=== PATIENT | female | born 1970 | race Caucasian/White ===

== ENCOUNTER 2017-02-09 15:51 | Observation (INO) ==
[2017-02-09 16:05] LABS: Bilirubin,Urine Negative (Negative); Blood,Urine Moderate (Negative); Clarity,Urine Clear (Clear); Color,Urine Yellow (Yellow); Glucose,Urine (UA) Normal (Normal); Ketones,Urine Negative (Negative); Leukocyte Esterase,Urine Negative (Negative); Nitrite,Urine Negative (Negative); PH,Urine 6.5 pH Units (5.0-8.0); Protein,Urine Negative (Neg-Trace); Urobilinogen,Urine Normal (Normal)
[2017-02-09 16:07] LABS: Bacteria,Urine Few per hpf (None-Few); Hyaline Casts,Urine None Seen per lpf (None-Few); RBC,Urine 0-3 per hpf (0-3); Squamous Epithelial Cell,Urine Many per lpf (None-Few)
[2017-02-09] MEDS ORDERED: Sucralfate 1 GM TABLET PO ONE (16:13)
[2017-02-09] MEDS ORDERED: *HR* FentaNYL (PF) 100 MCG/2 ML VIAL IVP ONE ×2 (16:14→16:54)
[2017-02-09] MEDS ORDERED: Ondansetron 4 MG/2 ML VIAL IVP ONE (16:14)
--- NOTE | 2017-02-09 16:14 | Emergency Department Note ---
Disposition Clinical Impression: Regional enteritis of jejunum Qualifiers: Digestive disease complication type: without complication Qualified Code(s): K50.00 - Crohn's disease of small intestine without complications Abdominal pain Qualifiers: Abdominal location: upper abdomen, unspecified Qualified Code(s): R10.10 - Upper abdominal pain, unspecified Disposition: Admitted As Inpatient Condition: Fair Referrals: Emre Jin, [Primary Care Provider] - Forms: ED Satisfaction Letter, Work/School Release Time of Disposition: 18:34 Abdominal Pain HPI - General Chief Complaint: ED Abdominal Pain Stated Complaint: Abdominal pain Time Seen by Provider: 02/09/17 15:53 Source: patient Nursing Notes Reviewed: Yes Vital Signs Reviewed: Yes - History of Present Illness HPI Narrative: 46-year-old female complains of abdominal pain that started 5 hours ago. Patient states she has been having these pain symptoms with past 3 months and usually is only 3/10. Patient's been under treatment by Dr. sofia nix of the [facility] and his been prescribed omeprazole for GERD. Patient states she takes chief incident daily and to have some effect but does not take the pain away completely. Patient states the pain started out at 8/10 today sharp across her upper abdomen including right upper epigastric and left upper quadrant with no radiation to her back or elsewhere. Patient states she does not have any urinary symptoms. Patient did have a bout of vomiting 2 hours after the onset of the pain with nausea. Patient states she has not had any imaging workup for her symptoms. The patient states she quit smoking one month ago. Pain Scale: 8 - Related Data Home Medications Medication Instructions Recorded Confirmed ClonazePAM 02/15/15 FLUoxetine HCl 02/15/15 Gabapentin 02/15/15 Ibuprofen 02/15/15 Vitamin D 02/15/15 02/15/15 Previous Rx's Medication Instructions Recorded Azithromycin [Azithromycin 6-Tab 250 mg PO DAILY #6 tab 02/15/15 Pack] Hydrocodone/Acetaminophen [[place] 1 each PO Q4H PRN #10 tablet 02/15/15 5-325 Tablet] L. Acidophilus/Pectin, [place] 1 each PO DAILY #6 capsule 02/15/15 [Acidophilus Probiotic Capsule] Promethazine/Dextromethorphan 5 ml PO Q4H PRN #120 ml 02/15/15 [Promethazine-Dm Syrup] Allergies Allergy/AdvReac Type Severity Reaction Status Date / Time methylprednisolone AdvReac Diarrhea Verified 11/25/14 10:01 [From Medrol] All systems ED: reviewed and negative except as stated. Review of Systems: As Per HPI Constitutional: Denies: fever, weakness Eyes: Denies: vision change ENT ED: Denies: throat pain Cardiovascular: Denies: chest pain Respiratory: Denies: cough, dyspnea Gastrointestinal: Reports: abdominal pain, nausea, vomiting, diarrhea Genitourinary: Denies: urgency, dysuria, frequency, hematuria Musculoskeletal: Denies: back pain, neck pain Abdominal Pain PMH - Past Medical History Medical history: Reports: fibromyalgia Female Surgical History: Reports: Psychiatric history: Reports: anxiety - Social History Smoking status: Former smoker Alcohol use: Reports: none Drug use: Reports: none Physical Exam Vital Signs Temperature 98.3 F 02/09/17 15:52 Pulse Rate 94 02/09/17 15:52 Respiratory Rate 20 02/09/17 15:52 Blood Pressure 174/99 02/09/17 15:52 O2 Sat by Pulse Oximetry 98 02/09/17 15:52 Temperature 98.3 F 02/09/17 15:52 Pulse Rate 94 02/09/17 15:52 Respiratory Rate 20 02/09/17 15:52 Blood Pressure 174/99 02/09/17 15:52 O2 Sat by Pulse Oximetry 98 02/09/17 15:52 Oxygen Delivery Oxygen Delivery Room Air 46-year-old female who is alert and oriented 3. Patient appears to be in some distress secondary to her abdominal discomfort. Patient is nontoxic appearing. Patient has normal vital signs exception of blood pressure which is 174/99. Patient's currently afebrile. - General Limitations: no limitations General appearance: alert, anxious - Head Head exam: atraumatic, normocephalic, normal inspection - Eye Eye exam: Present: normal appearance, PERRL, EOMI - ENT ENT exam: normal exam, normal oropharynx, mucous membranes moist - Neck Neck exam: Present: normal inspection, full ROM, trachea midline - Chest Chest inspection: Present: normal inspection, symmetric chest wall rise. Absent : tenderness - Respiratory Respiratory exam: Present: normal lung sounds bilaterally. Absent: respiratory distress, wheezes - Cardiovascular Cardiovascular exam: Present: regular rate, normal rhythm, normal heart sounds - Abdominal Exam Abdominal exam: Present: soft, Non-Tender. Absent: tenderness, distention, guarding, rebound, rigidity - Extremities Exam Extremities exam: Present: normal inspection, full ROM, normal capillary refill. Absent: tenderness, pedal edema - Back Exam Back exam: Present: normal inspection, full ROM. Absent: tenderness, CVA tenderness (R), CVA tenderness (L) - Neurological Exam Neurological exam: Present: alert, oriented X3 - Skin Skin exam: Present: warm, dry, intact, normal color Course Vital Signs Temperature 98.3 F 02/09/17 15:52 Pulse Rate 94 02/09/17 15:52 Respiratory Rate 20 02/09/17 15:52 Blood Pressure 174/99 02/09/17 15:52 O2 Sat by Pulse Oximetry 98 02/09/17 15:52 Temperature 98.3 F 02/09/17 15:52 Pulse Rate 87 02/09/17 17:23 Respiratory Rate 18 02/09/17 17:23 Blood Pressure 136/87 02/09/17 17:23 O2 Sat by Pulse Oximetry 97 02/09/17 17:23 Oxygen Delivery Oxygen Delivery Room Air Abdominal Pain - MDM Narrative Medical decision making narrative: Abdominal pain concerning for gastritis given patient's complaints of worsening pain when she eats and undergoing current treatment for GERD-like symptoms. Patient was given a dose of fentanyl, Carafate by mouth and Zofran IV. Patient has reduction in her symptoms from 8 down to 3/10. On abdominal exam with ultrasound across her epigastric region patient gallbladder showed no her cholecystic fluid, no thickening gallbladder wall, and no stones. But adjacent to the gallbladder showed a segment of intestine which had a anechoic layer to suggest some possible inflammation. Patient will be sent for CT abdomen and pelvis to rule out any intestinal causes of colitis, ischemic bowel or other intra-abdominal pathology. Patient's labs show WBC at 13.1 with a left shift. Lactic acid is negative. Patient's liver transaminases are not elevated. CT abdomen and pelvis results show: IMPRESSION: Marked mucosal thickening of proximal jejunal small bowel all with mild dilation of slightly more distal jejunal small bowel loops is nonspecific, may reflect infectious/inflammatory enteritis, but other etiologies are not excluded. No abrupt transition point to suggest bowel obstruction. Clinical correlation is recommended. Could consider CTE/MRE and/or endoscopy for further evaluation, as indicated. This is a jejunal enteritis. She has worsening pain symptoms whenever she takes anything by mouth. Patient requires bowel rest and antibiotics. She most likely will be not be able to tolerate oral antibiotics and so patient will be admitted for antibiotic treatment at bowel rest and pain control. Patient understands and agrees to treatment and plan Dr. Hopkins hospitalist as accepted patient for admission at 1832 hrs. - Lab Data Lab results reviewed: Yes I reviewed the patient's lab results. Lab results narrative: Short CBC 02/09/17 Range/Units 16:54 WBC 13.1 H (4.3-11.1) K/mcL Hgb 13.4 (11.5-15.4) g/dL Hct 40.7 (35.3-44.9) % Plt Count 288 (140-400) K/mcL Neutrophils # 11.0 H (1.6-8.9) K/mcL BMP 02/09/17 Range/Units 16:54 Sodium 139 (136-145) mEq/L Potassium 4.3 (3.5-4.5) mEq/L Chloride 110 H (98-109) mEq/L Carbon Dioxide 21 (19-29) mEq/L BUN 13 (7-20) mg/dL Creatinine 0.64 (0.57-1.11) mg/dL Glucose 99 (70-99) mg/dL Calcium 8.5 L (8.6-10.8) mg/dL Liver Function 02/09/17 Range/Units 16:54 Total Bilirubin 0.3 (0.2-1.2) mg/dL Direct Bilirubin 0.1 (0.0-0.5) mg/dL AST 17 (5-34) Units/L ALT 17 (0-55) Units/L Alkaline Phosphatase 113 (38-126) Units/L Albumin 3.1 L (3.5-5.0) g/dL Urine 02/09/17 Range/Units 15:54 Urine Color Yellow (Yellow) Urine Clarity Clear (Clear) Urine pH 6.5 (5.0-8.0) pH Units Ur Specific [place] 1.020 (1.010-1.025) Urine Protein Negative (Neg-Trace) mg/dL Urine Glucose (UA) Normal (Normal) mg/dL Result diagrams: 02/09/17 16:54 02/09/17 16:54 Lab Results 02/09/17 02/09/17 02/09/17 Range/Units 15:54 15:54 16:54 WBC 13.1 H (4.3-11.1) K/mcL RBC 4.62 (3.82-4.97) M/mcL Hgb 13.4 (11.5-15.4) g/dL Hct 40.7 (35.3-44.9) % MCV 88.1 (83.0-100.0) fL MCH 29.0 (28.0-33.3) pg MCHC 32.9 (31.6-35.5) g/dL RDW 13.1 (11.5-14.5) % Plt Count 288 (140-400) K/mcL MPV 9.0 L (9.4-12.4) fL Immature Gran % 0.4 (0-4) % Seg Neutrophils % 83.7 % Lymphocytes % 7.6 % Monocytes % 5.7 % Eosinophils % 2.1 % Basophils % 0.5 % Neutrophils # 11.0 H (1.6-8.9) K/mcL Lymphocytes # 1.0 (0.6-4.6) K/mcL Monocytes # 0.7 (0.0-1.3) K/mcL Eosinophils # 0.3 (0.0-0.6) K/mcL Basophils # 0.1 (0.0-0.2) K/mcL Sodium (136-145) mEq/L Potassium (3.5-4.5) mEq/L Chloride (98-109) mEq/L Carbon Dioxide (19-29) mEq/L BUN (7-20) mg/dL Creatinine (0.57-1.11) mg/dL Est GFR ( Amer) (> 60) Est GFR (Non-Af Amer) (> 60) BUN/Creatinine Ratio (6-26) Glucose (70-99) mg/dL Calculated Osmolality (280-300) Lactic Acid (0.5-2.2) mmol/L Calcium (8.6-10.8) mg/dL Total Bilirubin (0.2-1.2) mg/dL Direct Bilirubin (0.0-0.5) mg/dL Indirect Bilirubin (0.0-1.2) mg/dL AST (5-34) Units/L ALT (0-55) Units/L Alkaline Phosphatase (38-126) Units/L Serum Total Protein (6.0-8.3) g/dL Albumin (3.5-5.0) g/dL Globulin (2.4-3.5) g/dL Albumin/Globulin Ratio (1.1-2.2) Lipase (8-78) Units/L Urine Color Yellow (Yellow) Urine Clarity Clear (Clear) Urine pH 6.5 (5.0-8.0) pH Units Ur Specific [place] 1.020 (1.010-1.025) Urine Protein Negative (Neg-Trace) mg/dL Urine Glucose (UA) Normal (Normal) mg/dL Urine Ketones Negative (Negative) mg/dL Urine Blood Moderate H (Negative) Urine Nitrite Negative (Negative) Urine Bilirubin Negative (Negative) Urine Urobilinogen Normal (Normal) mg/dL Ur Leukocyte Esterase Negative (Negative) Urine Microscopic RBC 0-3 (0-3) per hpf Urine Microscopic WBC 3-5 H (0-3) per hpf Ur Squamous Epith Cells Many H (None-Few) per lpf Urine Bacteria Few (None-Few) per hpf Hyaline Casts None Seen (None-Few) per lpf Ur Culture Indicated? NO (NO) Urine Test Negative (Negative) 02/09/17 02/09/17 Range/Units 16:54 16:54 WBC (4.3-11.1) K/mcL RBC (3.82-4.97) M/mcL Hgb (11.5-15.4) g/dL Hct (35.3-44.9) % MCV (83.0-100.0) fL MCH (28.0-33.3) pg MCHC (31.6-35.5) g/dL RDW (11.5-14.5) % Plt Count (140-400) K/mcL MPV (9.4-12.4) fL Immature Gran % (0-4) % Seg Neutrophils % % Lymphocytes % % Monocytes % % Eosinophils % % Basophils % % Neutrophils # (1.6-8.9) K/mcL Lymphocytes # (0.6-4.6) K/mcL Monocytes # (0.0-1.3) K/mcL Eosinophils # (0.0-0.6) K/mcL Basophils # (0.0-0.2) K/mcL Sodium 139 (136-145) mEq/L Potassium 4.3 (3.5-4.5) mEq/L Chloride 110 H (98-109) mEq/L Carbon Dioxide 21 (19-29) mEq/L BUN 13 (7-20) mg/dL Creatinine 0.64 (0.57-1.11) mg/dL Est GFR ( Amer) > 60 (> 60) Est GFR (Non-Af Amer) > 60 (> 60) BUN/Creatinine Ratio 20 (6-26) Glucose 99 (70-99) mg/dL Calculated Osmolality 288 (280-300) Lactic Acid 0.7 (0.5-2.2) mmol/L Calcium 8.5 L (8.6-10.8) mg/dL Total Bilirubin 0.3 (0.2-1.2) mg/dL Direct Bilirubin 0.1 (0.0-0.5) mg/dL Indirect Bilirubin 0.2 (0.0-1.2) mg/dL AST 17 (5-34) Units/L ALT 17 (0-55) Units/L Alkaline Phosphatase 113 (38-126) Units/L Serum Total Protein 7.8 (6.0-8.3) g/dL Albumin 3.1 L (3.5-5.0) g/dL Globulin 4.7 H (2.4-3.5) g/dL Albumin/Globulin Ratio 0.7 L (1.1-2.2) Lipase 16 (8-78) Units/L Urine Color (Yellow) Urine Clarity (Clear) Urine pH (5.0-8.0) pH Units Ur Specific [place] (1.010-1.025) Urine Protein (Neg-Trace) mg/dL Urine Glucose (UA) (Normal) mg/dL Urine Ketones (Negative) mg/dL Urine Blood (Negative) Urine Nitrite (Negative) Urine Bilirubin (Negative) Urine Urobilinogen (Normal) mg/dL Ur Leukocyte Esterase (Negative) Urine Microscopic RBC (0-3) per hpf Urine Microscopic WBC (0-3) per hpf Ur Squamous Epith Cells (None-Few) per lpf Urine Bacteria (None-Few) per hpf Hyaline Casts (None-Few) per lpf Ur Culture Indicated? (NO) Urine Test (Negative) - Radiology Data Radiology results reviewed: Yes I reviewed the patient's radiology results. Chest X-Ray 02/09/17 16:13 IMPRESSION: No acute disease. D/ / Batsheva Sawyer Cha, MD / Batsheva Sawyer Cha, MD Interpreting Provider: Batsheva Sawyer Cha, MD Abdomen/Pelvis CT 02/09/17 16:54 IMPRESSION: Marked mucosal thickening of proximal jejunal small bowel all with mild dilation of slightly more distal jejunal small bowel loops is nonspecific, may reflect infectious/inflammatory enteritis, but other etiologies are not excluded. No abrupt transition point to suggest bowel obstruction. Clinical correlation is recommended. Could consider CTE/MRE and/or endoscopy for further evaluation, as indicated. D/ / Lex Zuniga / Lex Zuniga Interpreting Provider: Lex Zuniga - EKG Data EKG attestation: Yes I reviewed and interpreted this EKG. EKG results narrative: EKG taken 02/09/2017 at 1607 hrs. shows a sinus rhythm at a rate of 89 bpm with no acute ST elevations or depressions in any leads, no wrist widening or QT prolongation. Previously taking EKG for comparison on June 2012 SHOWS sinus rhythm with no acute ST elevations or depressions.
--- NOTE | 2017-02-09 16:36 | Emergency Department Note ---
Disposition Clinical Impression: Regional enteritis of jejunum, Abdominal pain Disposition: Admitted As Inpatient Condition: Fair Abdominal Pain HPI - General Chief Complaint: ED Abdominal Pain Stated Complaint: Abdominal pain Time Seen by Provider: 02/09/17 15:53 Source: patient Nursing Notes Reviewed: Yes Vital Signs Reviewed: Yes - History of Present Illness Pain Scale: 8 - Related Data Home Medications Medication Instructions Recorded Confirmed ClonazePAM 02/15/15 FLUoxetine HCl 02/15/15 Gabapentin 02/15/15 Ibuprofen 02/15/15 Vitamin D 02/15/15 02/15/15 Previous Rx's Medication Instructions Recorded Azithromycin [Azithromycin 6-Tab 250 mg PO DAILY #6 tab 02/15/15 Pack] Hydrocodone/Acetaminophen [[place] 1 each PO Q4H PRN #10 tablet 02/15/15 5-325 Tablet] L. Acidophilus/Pectin, [place] 1 each PO DAILY #6 capsule 02/15/15 [Acidophilus Probiotic Capsule] Promethazine/Dextromethorphan 5 ml PO Q4H PRN #120 ml 02/15/15 [Promethazine-Dm Syrup] Allergies Allergy/AdvReac Type Severity Reaction Status Date / Time methylprednisolone AdvReac Diarrhea Verified 11/25/14 10:01 [From Medrol] Constitutional: Denies: fever, weakness Eyes: Denies: vision change ENT ED: Denies: throat pain Cardiovascular: Denies: chest pain Respiratory: Denies: cough, dyspnea Gastrointestinal: Reports: abdominal pain, nausea, vomiting, diarrhea Genitourinary: Denies: urgency, dysuria, frequency, hematuria Musculoskeletal: Denies: back pain, neck pain Abdominal Pain PMH - Past Medical History Medical history: Reports: fibromyalgia Female Surgical History: Reports: Psychiatric history: Reports: anxiety - Social History Smoking status: Former smoker Alcohol use: Reports: none Drug use: Reports: none Physical Exam - General Limitations: no limitations General appearance: alert, anxious Course Vital Signs Temperature 98.3 F 02/09/17 15:52 Pulse Rate 94 02/09/17 15:52 Respiratory Rate 20 02/09/17 15:52 Blood Pressure 174/99 02/09/17 15:52 O2 Sat by Pulse Oximetry 98 02/09/17 15:52 Temperature 97.8 F 02/09/17 19:59 Pulse Rate 88 02/09/17 19:59 Respiratory Rate 15 02/09/17 19:59 Blood Pressure 153/91 02/09/17 19:59 O2 Sat by Pulse Oximetry 97 02/09/17 19:59 Oxygen Delivery Oxygen Delivery Room Air Abdominal Pain - MDM Narrative Medical decision making narrative: This documentation is done with the assistance of Dragon dictation. Despite efforts to ensure accuracy, there may be inaccuracies in chlorine plant operator or spelling and typographical errors. I examined this patient and my medical decision-making was reviewed with the Resident Physician. I agree with the documented findings, disposition and treatment plan as described except to the extent set forth below. Patient seen and evaluated today by Dr. Cuevas and myself, I agree with his evaluation and management plan, supervised the care of the patient stay. Patient states she has had abdominal pain going from about 3 months. Been epigastric. Primary care folks thought it was probably gastritis or ulcer placed her medication for that she has not been getting better he is worse after eating. No history of gallbladder disease. No imaging studies have been done. She is nontoxic here has a nonsurgical abdomen denies chest pain. Going to order lab work, tried to make her more comfortable and then reassess. She is in agreement with this plan. Chest X-Ray 02/09/17 16:13 IMPRESSION: No acute disease. D/ / Batsheva Sawyer Cha, MD / Batsheva Sawyer Cha, MD Interpreting Provider: Batsheva Sawyer Cha, MD Abdomen/Pelvis CT 02/09/17 16:54 IMPRESSION: Marked mucosal thickening of proximal jejunal small bowel all with mild dilation of slightly more distal jejunal small bowel loops is nonspecific, may reflect infectious/inflammatory enteritis, but other etiologies are not excluded. No abrupt transition point to suggest bowel obstruction. Clinical correlation is recommended. Could consider CTE/MRE and/or endoscopy for further evaluation, as indicated. D/ / Lex Zuniga / Lex Zuniga Interpreting Provider: Lex Zuniga 1820 hrs.: Patient does have some jejunal thickening and looks like mild enteritis. We will talk to her about home with antibiotics and bowel rest are coming into the hospital for further evaluation and management. She is in agreement with this plan. She is determining which she would rather do. 1836 hrs.: Patient says she wants to come in to the hospital. We will start her on antibiotics and admitted to hospitalist. She is in agreement with plan. Impressions abdominal pain with jejunal thickening and enteritis.. - Lab Data Result diagrams: 02/09/17 16:54 02/09/17 16:54 Lab Results 02/09/17 02/09/17 02/09/17 Range/Units 15:54 15:54 16:54 WBC 13.1 H (4.3-11.1) K/mcL RBC 4.62 (3.82-4.97) M/mcL Hgb 13.4 (11.5-15.4) g/dL Hct 40.7 (35.3-44.9) % MCV 88.1 (83.0-100.0) fL MCH 29.0 (28.0-33.3) pg MCHC 32.9 (31.6-35.5) g/dL RDW 13.1 (11.5-14.5) % Plt Count 288 (140-400) K/mcL MPV 9.0 L (9.4-12.4) fL Immature Gran % 0.4 (0-4) % Seg Neutrophils % 83.7 % Lymphocytes % 7.6 % Monocytes % 5.7 % Eosinophils % 2.1 % Basophils % 0.5 % Neutrophils # 11.0 H (1.6-8.9) K/mcL Lymphocytes # 1.0 (0.6-4.6) K/mcL Monocytes # 0.7 (0.0-1.3) K/mcL Eosinophils # 0.3 (0.0-0.6) K/mcL Basophils # 0.1 (0.0-0.2) K/mcL Sodium (136-145) mEq/L Potassium (3.5-4.5) mEq/L Chloride (98-109) mEq/L Carbon Dioxide (19-29) mEq/L BUN (7-20) mg/dL Creatinine (0.57-1.11) mg/dL Est GFR ( Amer) (> 60) Est GFR (Non-Af Amer) (> 60) BUN/Creatinine Ratio (6-26) Glucose (70-99) mg/dL Calculated Osmolality (280-300) Lactic Acid (0.5-2.2) mmol/L Calcium (8.6-10.8) mg/dL Total Bilirubin (0.2-1.2) mg/dL Direct Bilirubin (0.0-0.5) mg/dL Indirect Bilirubin (0.0-1.2) mg/dL AST (5-34) Units/L ALT (0-55) Units/L Alkaline Phosphatase (38-126) Units/L Serum Total Protein (6.0-8.3) g/dL Albumin (3.5-5.0) g/dL Globulin (2.4-3.5) g/dL Albumin/Globulin Ratio (1.1-2.2) Lipase (8-78) Units/L Urine Color Yellow (Yellow) Urine Clarity Clear (Clear) Urine pH 6.5 (5.0-8.0) pH Units Ur Specific [place] 1.020 (1.010-1.025) Urine Protein Negative (Neg-Trace) mg/dL Urine Glucose (UA) Normal (Normal) mg/dL Urine Ketones Negative (Negative) mg/dL Urine Blood Moderate H (Negative) Urine Nitrite Negative (Negative) Urine Bilirubin Negative (Negative) Urine Urobilinogen Normal (Normal) mg/dL Ur Leukocyte Esterase Negative (Negative) Urine Microscopic RBC 0-3 (0-3) per hpf Urine Microscopic WBC 3-5 H (0-3) per hpf Ur Squamous Epith Cells Many H (None-Few) per lpf Urine Bacteria Few (None-Few) per hpf Hyaline Casts None Seen (None-Few) per lpf Ur Culture Indicated? NO (NO) Urine Test Negative (Negative) 02/09/17 02/09/17 Range/Units 16:54 16:54 WBC (4.3-11.1) K/mcL RBC (3.82-4.97) M/mcL Hgb (11.5-15.4) g/dL Hct (35.3-44.9) % MCV (83.0-100.0) fL MCH (28.0-33.3) pg MCHC (31.6-35.5) g/dL RDW (11.5-14.5) % Plt Count (140-400) K/mcL MPV (9.4-12.4) fL Immature Gran % (0-4) % Seg Neutrophils % % Lymphocytes % % Monocytes % % Eosinophils % % Basophils % % Neutrophils # (1.6-8.9) K/mcL Lymphocytes # (0.6-4.6) K/mcL Monocytes # (0.0-1.3) K/mcL Eosinophils # (0.0-0.6) K/mcL Basophils # (0.0-0.2) K/mcL Sodium 139 (136-145) mEq/L Potassium 4.3 (3.5-4.5) mEq/L Chloride 110 H (98-109) mEq/L Carbon Dioxide 21 (19-29) mEq/L BUN 13 (7-20) mg/dL Creatinine 0.64 (0.57-1.11) mg/dL Est GFR ( Amer) > 60 (> 60) Est GFR (Non-Af Amer) > 60 (> 60) BUN/Creatinine Ratio 20 (6-26) Glucose 99 (70-99) mg/dL Calculated Osmolality 288 (280-300) Lactic Acid 0.7 (0.5-2.2) mmol/L Calcium 8.5 L (8.6-10.8) mg/dL Total Bilirubin 0.3 (0.2-1.2) mg/dL Direct Bilirubin 0.1 (0.0-0.5) mg/dL Indirect Bilirubin 0.2 (0.0-1.2) mg/dL AST 17 (5-34) Units/L ALT 17 (0-55) Units/L Alkaline Phosphatase 113 (38-126) Units/L Serum Total Protein 7.8 (6.0-8.3) g/dL Albumin 3.1 L (3.5-5.0) g/dL Globulin 4.7 H (2.4-3.5) g/dL Albumin/Globulin Ratio 0.7 L (1.1-2.2) Lipase 16 (8-78) Units/L Urine Color (Yellow) Urine Clarity (Clear) Urine pH (5.0-8.0) pH Units Ur Specific [place] (1.010-1.025) Urine Protein (Neg-Trace) mg/dL Urine Glucose (UA) (Normal) mg/dL Urine Ketones (Negative) mg/dL Urine Blood (Negative) Urine Nitrite (Negative) Urine Bilirubin (Negative) Urine Urobilinogen (Normal) mg/dL Ur Leukocyte Esterase (Negative) Urine Microscopic RBC (0-3) per hpf Urine Microscopic WBC (0-3) per hpf Ur Squamous Epith Cells (None-Few) per lpf Urine Bacteria (None-Few) per hpf Hyaline Casts (None-Few) per lpf Ur Culture Indicated? (NO) Urine Test (Negative)
[2017-02-09 17:03] LABS: Basophils # 0.1 K/mcL (0.0-0.2); Basophils % 0.5 %; Eosinophils # 0.3 K/mcL (0.0-0.6); Eosinophils % 2.1 %; Hematocrit 40.7 % (35.3-44.9); Hemoglobin 13.4 g/dL (11.5-15.4); Immature Granulocytes % 0.4 % (0-4); Lymphocytes % 7.6 %; Mean Corpuscular HGB Conc 32.9 g/dL (31.6-35.5); Mean Corpuscular Volume 88.1 fL (83.0-100.0); Monocytes # 0.7 K/mcL (0.0-1.3); Monocytes % 5.7 %; Platelet Count 288 K/mcL (140-400); Red Blood Count 4.62 M/mcL (3.82-4.97); Red Cell Distribution Width 13.1 % (11.5-14.5); Segmented Neutrophils % 83.7 %
[2017-02-09 17:28] LABS: Alanine Aminotransferase 17 Units/L (0-55); Albumin 3.1 g/dL (3.5-5.0); Albumin/Globulin Ratio 0.7 (1.1-2.2); Alkaline Phosphatase 113 Units/L (38-126); Aspartate Amino Transferase 17 Units/L (5-34); BUN/Creatinine Ratio 20 (6-26); Bilirubin,Direct 0.1 mg/dL (0.0-0.5); Bilirubin,Indirect 0.2 mg/dL (0.0-1.2); Bilirubin,Total 0.3 mg/dL (0.2-1.2); Blood Urea Nitrogen 13 mg/dL (7-20); Calcium 8.5 mg/dL (8.6-10.8); Carbon Dioxide 21 mEq/L (19-29); Chloride 110 mEq/L (98-109); Globulin 4.7 g/dL (2.4-3.5); Glucose 99 mg/dL (70-99); Lipase 16 Units/L (8-78); Osmolality,Calculated 288 (280-300); Potassium 4.3 mEq/L (3.5-4.5); Sodium 139 mEq/L (136-145); Total Protein 7.8 g/dL (6.0-8.3); eGFR For African Americans > 60 (> 60); eGFR For Non-African Americans > 60 (> 60)
[2017-02-09] MEDS ORDERED: MetroNIDAZOLE 500 MG/100 ML 500 MG/100 ML BAG IVPB ONE (18:34)
[2017-02-09] MEDS ORDERED: Ondansetron 4 MG/2 ML VIAL IVP PRN (18:49)
[2017-02-09] MEDS ORDERED: *HR* Promethazine 25 MG/ML VIAL IVP PRN (19:52)
[2017-02-09] MEDS ORDERED: Naloxone 0.4 MG/ML INJ IVP PRN (19:52)
[2017-02-09] MEDS ORDERED: Acetaminophen 325 MG TABLET PO PRN (19:52)
--- NOTE | 2017-02-09 20:08 | Internal Med History&Physical ---
<Earnest Vazquez - Last Filed: 02/09/17 20:46> Date of Encounter: 02/09/17 Time of Encounter: 19:00 Assessment and Plan (1) Regional enteritis of jejunum Current visit: Yes Status: Acute Acute jejunal enteritis. CT abdomen/pelvis with IV and oral contrast today shows marked mucosal thickening of proximal jejunal small bowel with mild dilation of slightly more distal jejunal small bowel loops that is nonspecific but may reflect infectious/inflammatory enteritis, but other etiologies are not excluded. No abrupt transition point to suggest bowel obstruction. Clinical correlation is recommended. Could consider CTE/MRE and/or endoscopy for further evaluation as indicated. WBC 13.1. Pt. currently meets SIRS criteria. IVPB ciprofloxacin and Flagyl administered to ED. We will continue IVPB ciprofloxacin 400 mg every 12 and Flagyl 500 mg every 8 for infection coverage. NPO except medications d/t N/V. Will advance diet as tolerated. IV 0.9 NS @ 125 mL/HR. Continuous telemetry d/t current tachycardia. Monitor pt. and f/u labs. Pt. discussed w/Dr. Engel who agrees w/plan of care. Pt. is high risk for further morbidity and infection based on current sx, hx of recurrent abdominal pain for three months, and SIRS criteria. Observation. Qualifiers: Digestive disease complication type: without complication Qualified Code(s) : K50.00 - Crohn's disease of small intestine without complications (2) SIRS (systemic inflammatory response syndrome) Current visit: Yes Status: Acute Pt. currently has SIRS criteria of WBC of 13.1, HR of 93 bpm, and infection from jejunal enteritis. RR is currently 15, Temp is 97.8F, and lactic acid is 0.7. Pt. to receive IV 0.9 NS @ 125 mL/HR. IVPB ciprofloxacin 400 mg Q12 and Flagyl 500 mg Q8 for infection coverage. Will monitor pt. and f/u labs. (3) Abdominal pain Current visit: Yes Status: Acute Acute epigastric pain that began this morning at 11 a.m. Pt. reports intermittent and chronic epigastric pain for the past three months. PCP placed her on PO omeprazole which she reports is not working well. Pt. instructed to discuss this w/her PCP further. NPO except medications for now with diet to be advanced as tolerated. IVP Zofran 8 mg Q8 for N/V with IVP 12.5 mg Phenergan ordered in event Zofran is not working. Monitor I&O and daily weight. Stair- step pain medications for pain mgmt. Qualifiers: Abdominal location: epigastric Qualified Code(s): R10.13 - Epigastric pain (4) Nausea & vomiting Current visit: Yes Status: Acute Acute nausea and vomiting that began at 11 a.m. this morning. Pt. states she is unable to keep many things down. NPO except medications. IVP Zofran 8 mg Q8 ordered. IVP 12.5 phenergan ordered if Zofran is not relieving N/V. Monitor I&O and daily weight. Will advance diet as tolerated when pt. is able. Qualifiers: Vomiting type: cyclical vomiting Vomiting Intractability: non-intractable Qualified Code(s): G43.A0 - Cyclical vomiting, not intractable (5) GERD (gastroesophageal reflux disease) Current visit: Yes Status: Chronic Hx of chronic GERD. Pt. reports being put on omeprazole by her PCP but states that this is not currently working for GERD. IVP Protonix 40 mg daily. IVP Zofran and Phenergan PRN for N/V. Qualifiers: Esophagitis presence: esophagitis presence not specified Qualified Code(s) : K21.9 - Gastro-esophageal reflux disease without esophagitis (6) Fibromyalgia Current visit: Yes Status: Chronic Hx of chronic fibromyalgia. Continue patient's gabapentin and add stair-step pain medication for pain management. (7) Anxiety Current visit: Yes Status: Chronic Hx of chronic anxiety. Continue patient's fluoxetine and clonazepam. (8) DVT prophylaxis Current visit: Yes Status: Acute Lovenox 40 mg 0600 for DVT prophylaxis. Monitor pt. for signs of bleeding. Internal Medicine - H&P: HPI Chief complaint: Abdominal pain/N/V History of present illness: Ms. Castellon is a 46 year old female with medical hx of fibromyalgia presents from the ED with chief complaint of abdominal pain, nausea, and vomiting since 11 a.m. this morning. Pt. reports that she has been having epigastric pain for the past three months intermittently and her PCP (Emre Jin) for GERD mgmt. She reports that the omeprazole she is taking is not working. States that the epigastric pain affects her entire abdomen and that she bloats sometimes. Pt. denies recent illness, fever, chills, cough, weakness, fatigue, chest pain, palpitations, changes in vision, headache, unusual bleeding, diarrhea, constipation, urinary urgency or frequency, dizziness, lightheadedness, pre- syncope, or syncope. Past Med Surg Social Fam HX - Past Medical History Source: patient, old records reviewed Medical history: fibromyalgia Psychiatric history: anxiety - Past Surgical History Surgical History: , other (Tubal ligation, bilateral tubes in ears) - Social History Smoking Status: Former smoker Packs per day: 1 PPD - Reports quitting 1 month ago Smokeless Tobacco Status: No Alcohol use: none Drug use: none Occupational status: employed Current living situation: Home, With Family Activity Level: Independent ambulation Recent Out of Country Travel Within the Last 8 Weeks: No Exposure or Possible Exposure to Illness During Travel: No - Family History Father History Unknown: Yes Race: Family Member Ethnicity: Non- Mother Race: Family Member Ethnicity: Non- Living Status: Still Living Hx Family Cardiac Disorders: Yes (HTN) Hx Family Autoimmune Disorders: Yes (Lupus) Brother History Unknown: Yes Race: Family Member Ethnicity: Non- Living Status: Still Living Sister Race: Family Member Ethnicity: Non- Living Status: Still Living Hx Family Medical Disorders: No Internal Medicine - H&P: Meds Azithromycin [Azithromycin 6-Tab Pack] 250 mg PO DAILY #6 tab 02/15/15 [Rx] ClonazePAM 02/15/15 [History] FLUoxetine HCl 02/15/15 [History] Gabapentin 02/15/15 [History] Hydrocodone/Acetaminophen [[place] 5-325 Tablet] 1 each PO Q4H PRN #10 tablet [Rx] Ibuprofen 02/15/15 [History] L. Acidophilus/Pectin, [place] [facility] [Acidophilus Probiotic Capsule] 1 each PO DAILY # 6 capsule 02/15/15 [Rx] Promethazine/Dextromethorphan [Promethazine-Dm Syrup] 5 ml PO Q4H PRN #120 ml [Rx] Vitamin D 02/15/15 [History] 3 Allergy/AdvReac Type Severity Reaction Status Date / Time methylprednisolone AdvReac Diarrhea Verified 11/25/14 10:01 [From Medrol] All Systems PM: A 10-system review of systems was performed and is negative for pertinent findings except as documented above in the HPI. - Constitutional Constitutional: as per HPI, no chills, no fever(s), no night sweats - EENT Eyes: no change in vision, no discharge, no pain, no photophobia Ears: no ear discharge, no ear pain, no tinnitus Nose, mouth and throat: no dysphagia, no nasal discharge, no neck pain, no sore throat - Breasts Breasts: as per HPI - Cardiovascular Cardiovascular ROS IM: no chest pain, no diaphoresis, no dyspnea, no lightheadedness, no palpitations, no syncope - Respiratory Respiratory: no cough, no dyspnea, no wheezing, no excessive phlegm production - Gastrointestinal Gastrointestinal: as per HPI, abdominal pain, heartburn, nausea, vomiting (Pt. reports she is unable to keep things down ) - Genitourinary Genitourinary: no change in urinary stream, no dysuria, no flank pain, no hematuria Menstruation: as per HPI, currently menstrual - Musculoskeletal Musculoskeletal ROS IM: no numbness, no tingling - Integumentary Integumentary IM: no rash, no unusual bruising - Neurological Neurological ROS: no confusion, no convulsions, no focal weakness, no numbness, no tingling, no tremor(s) - Psychiatric Psychiatric: as per HPI - Endocrine Endocrine IM: as per HPI - Hematologic/Lymphatic Hematologic/Lymphatic: no easy bruising - Allergic/Immunologic Allergic/Immunologic: as per HPI - Constitutional Vitals: Temp Pulse Resp BP Pulse Ox 97.8 F 88 15 153/91 97 02/09/17 19:59 02/09/17 19:59 02/09/17 19:59 02/09/17 19:59 02/09/17 19:59 General appearance: Present: cooperative, mild distress, A&O X 3, pleasant, answers questions appropriately - Head Head exam: Present: atraumatic, normocephalic - Eye Eye exam: Present: PERRL, conjuntiva pink, sclera anicteric Pupils: Present: PERRL - ENT ENT exam: Present: normal exam - Neck Neck exam general surgery: Present: normal inspection - Respiratory Respiratory exam: Present: CTAB. Absent: accessory muscle use, rales, rhonchi, wheezes - Cardiovascular Cardiovascular exam: Present: +S1, +S2, tachycardia - GI/Abdominal GI/Abdominal exam: Present: normal bowel sounds, soft, no peritoneal signs. Absent: distended, tenderness - Rectal Rectal exam: Present: deferred - Additional comments: exam deferred. - Extremities Exam Extremities exam: Present: warm, radial pulses palpable and symmetrical. Absent : calf tenderness, cyanotic, pedal edema - Back Exam Back exam: Present: normal inspection - Neurological Exam Neurological exam: Present: CN II-XII intact, oriented X3, no focal deficits. Absent: pronater drift, facial droop, speech deficit - Psychiatric Psychiatric exam: Present: anxious - Skin Skin exam: Present: dry, intact Internal Med - H&P Results - Labs CBC & Chem 7: 02/09/17 16:54 02/09/17 16:54 - EKG Data EKG shows normal: sinus rhythm Rate: normal - EKG Data Prior EKG available for review: yes When compared to previous EKG: there is no significant change Interpretation IM: normal EKG EKG comments: 02/09/17 20:14 EKG dated 06/25/12 shows sinus rhythm within normal limits. Normal ECG. EKG dated 02/09/17 shows sinus rhythm with normal ECG. - Diagnostic Studies CT scan - abdomen Additional comments: Impressions Abdomen/Pelvis CT 02/09/17 16:54 IMPRESSION: Marked mucosal thickening of proximal jejunal small bowel all with mild dilation of slightly more distal jejunal small bowel loops is nonspecific, may reflect infectious/inflammatory enteritis, but other etiologies are not excluded. No abrupt transition point to suggest bowel obstruction. Clinical correlation is recommended. Could consider CTE/MRE and/or endoscopy for further evaluation, as indicated. D/ / Lex Zuniga / Lex Zuniga Interpreting Provider: Lex Zuniga Chest x-ray Additional comments: Impressions Chest X-Ray 02/09/17 16:13 IMPRESSION: No acute disease. D/ / Batsheva Sawyer Cha, MD / Batsheva Sawyer Cha, MD Interpreting Provider: Batsheva Sawyer Cha, MD <Mary Engel - Last Filed: 02/09/17 22:38> Date of Encounter: 02/09/17 Internal Medicine - H&P: HPI History of present illness: Ms. Castellon is a 46 year old female All Systems PM: A 10-system review of systems was performed and is negative for pertinent findings except as documented above in the HPI. - Constitutional Vitals: Temp Pulse Resp BP Pulse Ox 97.8 F 88 15 153/91 97 02/09/17 19:59 02/09/17 19:59 02/09/17 19:59 02/09/17 19:59 02/09/17 19:59 Internal Med - H&P Results - Labs CBC & Chem 7: 02/09/17 16:54 02/09/17 16:54 - Attending Attestation I have personally performed a face to face evaluation on this patient. I have reviewed and agree with the care plan provied by ECONOMICS PROFESSOR Earnest Vazquez. History and Exam by me shows: Ms. Castellon is a 46 year old female with medical hx of fibromyalgia presents from the ED with chief complaint of abdominal pain, nausea, and vomiting since [address] of abdomen showed enteritis. Pt also mentioned that her grand children have some GI bug too. Gen: A, A, O x 3.. Looks lethargic Chest: CTA Abd: Soft, NT, BS ++ a/p 1. Acute gastroenteritis mostly viral.. however since pt looks very sick and toxic will cont empirical abx clear liquid diet IV hydration
[2017-02-09] MEDS: 0.9 % Sodium Chloride 1,000 ML IVC SCH (21:00)
[2017-02-09] MEDS: *HR* Morphine 2 MG/ML SYRINGE IVP PRN (21:01)
[2017-02-09] MEDS: Pantoprazole 40 MG VIAL IVP SCH (21:06)
[2017-02-09] MEDS: *HR* HYDROcodone/Acet 5/325 mg TABLET PO PRN (22:11)
[2017-02-09] MEDS: MetroNIDAZOLE 500 MG/100 ML 500 MG/100 ML BAG IVPB SCH ×2 (23:16→23:19)
[2017-02-10 04:58] LABS: Basophils % 0.4 %; Eosinophils # 0.2 K/mcL (0.0-0.6); Eosinophils % 2.2 %; Hematocrit 36.1 % (35.3-44.9); Immature Granulocytes % 0.3 % (0-4); Lymphocytes # 0.9 K/mcL (0.6-4.6); Lymphocytes % 11.1 %; Mean Corpuscular HGB Conc 32.1 g/dL (31.6-35.5); Mean Corpuscular Hemoglobin 28.4 pg (28.0-33.3); Mean Corpuscular Volume 88.5 fL (83.0-100.0); Mean Platelet Volume 9.7 fL (9.4-12.4); Monocytes # 0.4 K/mcL (0.0-1.3); Monocytes % 5.3 %; Neutrophils # 6.2 K/mcL (1.6-8.9); Platelet Count 248 K/mcL (140-400); Red Blood Count 4.08 M/mcL (3.82-4.97); Red Cell Distribution Width 13.2 % (11.5-14.5); Segmented Neutrophils % 80.7 %
[2017-02-10 05:09] LABS: Hemoglobin 11.6 g/dL (11.5-15.4)
[2017-02-10 05:10] LABS: Alanine Aminotransferase 16 Units/L (0-55); Albumin 2.7 g/dL (3.5-5.0); Albumin/Globulin Ratio 0.7 (1.1-2.2); Alkaline Phosphatase 98 Units/L (38-126); Aspartate Amino Transferase 13 Units/L (5-34); BUN/Creatinine Ratio 17 (6-26); Bilirubin,Total 0.3 mg/dL (0.2-1.2); Blood Urea Nitrogen 11 mg/dL (7-20); Carbon Dioxide 26 mEq/L (19-29); Chloride 107 mEq/L (98-109); Chol/HDL Ratio 4.8 (0-4.9); Cholesterol 181 mg/dL (< 200); Globulin 3.7 g/dL (2.4-3.5); Glucose 95 mg/dL (70-99); HDL Cholesterol 38 mg/dL (40-59); LDL Cholesterol,Calculated 127 mg/dL (0-99); Magnesium 1.4 mg/dL (1.6-2.6); Osmolality,Calculated 285 (280-300); Potassium 3.6 mEq/L (3.5-4.5); Sodium 138 mEq/L (136-145); Total Protein 6.4 g/dL (6.0-8.3); Triglycerides 81 mg/dL (< 150); eGFR For African Americans > 60 (> 60); eGFR For Non-African Americans > 60 (> 60)
[2017-02-10] MEDS: *HR* Enoxaparin 40 MG/0.4 ML SYRINGE SQ SCH (05:19)
[2017-02-10] MEDS: Pantoprazole 40 MG VIAL IVP SCH (05:19)
[2017-02-10] MEDS: 0.9 % Sodium Chloride 1,000 ML IVC SCH ×2 (05:20→14:51)
[2017-02-10] MEDS: *HR* Morphine 2 MG/ML SYRINGE IVP PRN ×4 (05:26→23:51)
--- NOTE | 2017-02-10 08:50 | Internal Med Progress Note ---
Date of Encounter: 02/10/17 Time of Encounter: 08:48 - Assessment and plan (1) Regional enteritis of jejunum Current Visit: Yes Status: Acute Assessment and plan: Patient presented with abdominal pain, nausea and vomiting. CT abdomen/pelvis showed mucosal thickening in proximal jejunum. Continue empiric IV antibiotics- ciprofloxacin and Flagyl. Start clear liquid diet, advance as tolerated. Supportive care with when necessary antiemetics, pain control with when necessary IV morphine. Qualifiers: Digestive disease complication type: without complication Qualified Code(s) : K50.00 - Crohn's disease of small intestine without complications (2) SIRS (systemic inflammatory response syndrome) Current Visit: Yes Status: Acute Assessment and plan: Present with leukocytosis, mild tachycardia, likely related to nausea and vomiting. Currently improved. (3) Fibromyalgia Current Visit: Yes Status: Chronic (4) Anxiety Current Visit: Yes Status: Chronic - Subjective Interval history: Reports improving abdominal pain, nausea, vomiting; has not had any episodes this morning; agreeable to starting liquid diet; no diarrhea, fever/chills; - Constitutional Vitals: Temp Pulse Resp BP Pulse Ox 98.4 F 68 12 110/70 97 02/10/17 08:09 02/10/17 08:09 02/10/17 08:09 02/10/17 08:09 02/10/17 08:09 General appearance: Present: cooperative, A&O X 3, answers questions appropriately - Respiratory Respiratory exam: Present: CTAB. Absent: accessory muscle use, rales, rhonchi, wheezes - Cardiovascular Cardiovascular exam: Present: RRR, +S1, +S2. Absent: diastolic murmur, gallop, rubs, systolic murmur - GI/Abdominal GI/Abdominal exam: Present: normal bowel sounds, soft (tenderness in epigastrium and central abdomen), no peritoneal signs. Absent: distended, tenderness - Extremities Exam Extremities exam: Present: full ROM, warm, radial pulses palpable and symmetrical. Absent: calf tenderness, cyanotic, pedal edema - Neurological Exam Neurological exam: Present: CN II-XII intact, oriented X3, no focal deficits. Absent: pronater drift, facial droop, speech deficit Internal Medicine: Result - Labs CBC & Chem 7: 02/10/17 03:34 02/10/17 03:34 Labs: Short CBC 02/10/17 Range/Units 03:34 WBC 7.7 (4.3-11.1) K/mcL Hgb 11.6 D (11.5-15.4) g/dL Hct 36.1 (35.3-44.9) % Plt Count 248 (140-400) K/mcL Neutrophils # 6.2 (1.6-8.9) K/mcL BMP 02/10/17 03:34 Sodium 138 Potassium 3.6 Chloride 107 Carbon Dioxide 26 BUN 11 Creatinine 0.65 Glucose 95 Calcium 8.0 L Liver Function 02/10/17 Range/Units 03:34 Total Bilirubin 0.3 (0.2-1.2) mg/dL AST 13 (5-34) Units/L ALT 16 (0-55) Units/L Alkaline Phosphatase 98 (38-126) Units/L Albumin 2.7 L (3.5-5.0) g/dL Consult Discharge Plan - Plan Referrals: Emre Jin DO [Primary Care Provider] -
[2017-02-10] MEDS: MetroNIDAZOLE 500 MG/100 ML 500 MG/100 ML BAG IVPB SCH ×3 (09:40→23:50)
[2017-02-10] MEDS: *HR* HYDROcodone/Acet 5/325 mg TABLET PO PRN (13:04)
[2017-02-11] MEDS: 0.9 % Sodium Chloride 1,000 ML IVC SCH ×2 (04:37→06:54)
[2017-02-11] MEDS: Pantoprazole 40 MG VIAL IVP SCH (05:21)
[2017-02-11] MEDS: *HR* Enoxaparin 40 MG/0.4 ML SYRINGE SQ SCH (05:21)
[2017-02-11 05:49] LABS: Basophils % 0.6 %; Eosinophils # 0.2 K/mcL (0.0-0.6); Eosinophils % 3.4 %; Hematocrit 33.6 % (35.3-44.9); Hemoglobin 10.9 g/dL (11.5-15.4); Lymphocytes # 1.2 K/mcL (0.6-4.6); Lymphocytes % 25.5 %; Mean Corpuscular HGB Conc 32.4 g/dL (31.6-35.5); Mean Corpuscular Volume 89.4 fL (83.0-100.0); Mean Platelet Volume 9.3 fL (9.4-12.4); Monocytes # 0.7 K/mcL (0.0-1.3); Monocytes % 14.1 %; Neutrophils # 2.6 K/mcL (1.6-8.9); Platelet Count 228 K/mcL (140-400); Red Blood Count 3.76 M/mcL (3.82-4.97); Red Cell Distribution Width 13.2 % (11.5-14.5); Segmented Neutrophils % 56.4 %
[2017-02-11 06:05] LABS: Alanine Aminotransferase 29 Units/L (0-55); Albumin 2.6 g/dL (3.5-5.0); Albumin/Globulin Ratio 0.7 (1.1-2.2); Alkaline Phosphatase 87 Units/L (38-126); Aspartate Amino Transferase 37 Units/L (5-34); BUN/Creatinine Ratio 11 (6-26); Bilirubin,Total 0.2 mg/dL (0.2-1.2); Blood Urea Nitrogen 7 mg/dL (7-20); Calcium 8.1 mg/dL (8.6-10.8); Carbon Dioxide 24 mEq/L (19-29); Chloride 109 mEq/L (98-109); Globulin 3.6 g/dL (2.4-3.5); Glucose 85 mg/dL (70-99); Osmolality,Calculated 287 (280-300); Potassium 3.4 mEq/L (3.5-4.5); Sodium 140 mEq/L (136-145); Total Protein 6.2 g/dL (6.0-8.3); eGFR For African Americans > 60 (> 60); eGFR For Non-African Americans > 60 (> 60)
[2017-02-11] MEDS: MetroNIDAZOLE 500 MG/100 ML 500 MG/100 ML BAG IVPB SCH (08:43)
[2017-02-11] MEDS ORDERED: Potassium Chloride Elixir 20 MEQ/15 ML UDC PO ONE (09:20)
[2017-02-11 10:18] VITALS: BP 155/89
--- NOTE | 2017-02-11 11:05 | Discharge Summary ---
Date of Encounter: 02/11/17 Time of Encounter: 09:15 - Discharge Diagnosis (1) Regional enteritis of jejunum Priority: Primary Status: Acute Qualifiers: Digestive disease complication type: without complication Qualified Code(s) : K50.00 - Crohn's disease of small intestine without complications (2) SIRS (systemic inflammatory response syndrome) Priority: Primary Status: Resolved (3) Fibromyalgia Priority: Secondary Status: Chronic (4) Anxiety Priority: Secondary Status: Chronic - Discharge Medications Prescriptions: Ciprofloxacin HCl [Cipro] 500 mg PO BID #10 tablet metroNIDAZOLE [Flagyl] 500 mg PO TID #15 tablet Home Medications: FLUoxetine HCl [Prozac] 40 mg PO DAILY 02/10/17 [History] Gabapentin [Neurontin] 800 mg PO TID 02/10/17 [History] Omeprazole 20 mg PO DAILY 02/10/17 [History] Venlafaxine HCl [Venlafaxine HCl ER] 37.5 mg PO DAILY 02/10/17 [History] Ciprofloxacin HCl [Cipro] 500 mg PO BID #10 tablet 02/11/17 [Rx] metroNIDAZOLE [Flagyl] 500 mg PO TID #15 tablet 02/11/17 [Rx] Allergies/Adverse Reactions: 3 Allergy/AdvReac Type Severity Reaction Status Date / Time methylprednisolone AdvReac Diarrhea Verified 11/25/14 10:01 [From Medrol] Date of admission: 02/09/17 18:56 Primary care physician: Emre Jin DO Discharging clinician: Shari Mak Anticipated date of discharge: 02/11/17 - Patient Status Disposition: Home, Self-Care Condition: Good Functional capacity at discharge: independent ambulation Overall status at discharge: patient is progressing back to baseline - Discharge Instructions Follow Up With: Emre Jin DO [Primary Care Provider] - Additional Instructions: F/u[ with PCP in 1-2 weeks - Diet and Activity Activity: resume usual activities as tolerated Diet: advance to your usual diet, regular diet Hospital course: Ms. Castellon is a 46 year old female - Time Spent with Patient Total time spent providing and/or coordinating discharge services: Greater than 30 minutes (40 min) - Constitutional Vitals: Temp Pulse Resp BP Pulse Ox 97.5 F L 83 14 155/89 96 02/11/17 10:13 02/11/17 10:13 02/11/17 10:13 02/11/17 10:13 02/11/17 10:13 General appearance: Present: cooperative, A&O X 3, answers questions appropriately - Cardiovascular Cardiovascular exam: Present: RRR, +S1, +S2. Absent: diastolic murmur, gallop, rubs, systolic murmur
--- NOTE | 2017-02-12 09:43 | Electrocardiograph Report ---
[place] [id number] Test Date: 2017-02-09 Pat Name: Joyce Castellon Department: 104 Room: 3A22 Gender: F Tong Hooker: : 1970 Requested By: Russell Sotelo Order Number: [id number] Reading MD: Jimenez Sanabria DO Measurements Intervals [place] Rate: 89 P: 54 IL: 143 QRS: 38 QRSD: 97 T: 56 QT: 367 QTc: 414 Interpretive Statements SINUS RHYTHM Electronically Signed On 02-12-2017 9:41:54 EST by Jimenez Sanabria DO
== END 2017-02-11 12:30 | disposition home or self-care (01) ==
LOC: 3ANU 15:51 → EMEROO 15:51 → 3ANU 19:11
PROVIDERS: ADMIT Internal Medicine Cardiovascular Disease; ATTEND Internal Medicine

== ENCOUNTER 2018-08-29 12:33 | Inpatient (IN) ==
[2018-08-29] MEDS ORDERED: *HR* Ticagrelor 90 MG TABLET PO ONE (12:37)
[2018-08-29] MEDS ORDERED: 0.9 % Sodium Chloride 1,000 ML ONE ×3 (12:41→12:48)
[2018-08-29] MEDS ORDERED: Aspirin 81 MG TAB.CHEW ONE (12:41)
[2018-08-29] MEDS ORDERED: *HR* Ticagrelor 90 MG TABLET ONE ×2 (12:41→12:49)
[2018-08-29] MEDS ORDERED: *HR* Heparin 5,000 UNIT/ML VIAL ONE (12:41)
[2018-08-29] MEDS ORDERED: Heparin 25,000 UNIT/250 ML D5W 25,000 UNIT/250 ML IV.SOLN IVC SCH (12:45)
[2018-08-29] MEDS ORDERED: *HR* Heparin 10,000 UNIT/10 ML VIAL ONE (12:47)
[2018-08-29] MEDS ORDERED: Nitroglycerin 1,000 MCG/10 ML VIAL IV ONE (12:47)
[2018-08-29] MEDS ORDERED: ISOVUE-370 200 ML INFUS..BTL ONE ×2 (12:47→12:48)
[2018-08-29] MEDS ORDERED: Heparin 1,000 UNITS/500 mL 500 ML ONE (12:47)
--- NOTE | 2018-08-29 12:47 | Emergency Department Note ---
Disposition Clinical Impression: ST elevation myocardial infarction (STEMI) Qualifiers: Involved coronary artery: other inferior wall coronary artery Qualified Code(s): I21.19 - ST elevation (STEMI) myocardial infarction involving other coronary artery of inferior wall Disposition: Admitted As Inpatient Condition: Fair Time of Disposition: 12:45 Chest Pain HPI - General Chief Complaint: ED Chest Pain Stated Complaint: Poss heart attack Time Seen by Provider: 08/29/18 12:37 Source: patient, EMS Mode of arrival: EMS Limitations: no limitations Vital Signs Reviewed: Yes Nursing Notes Reviewed: Yes - History of Present Illness HPI Narrative: This is a 47 year-old female with history of chronic pain who presented via EMS with left-sided chest pain, associated with diaphoresis, nausea, dizziness, and shortness of breath, that began at 10:45 AM during ambulation. Patient received ASA and NTG prior to arrival. EKG obtained 2 EKGs, the second of which showed inferior STEMI. She denies any history of heart disease or cardiac evaluation. Pt complaint: chest pain Onset (ago): hour(s) (2) Duration: constant Onset: during exertion Pain Location: left chest Severity: severe Quality: heaviness Improves with: nothing Worsens with: nothing - Related Data Previous Rx's Medication Instructions Recorded Aspirin 81 mg PO DAILY #30 tab.chew 08/31/18 Clopidogrel [Plavix] 75 mg PO DAILY #30 tablet 08/31/18 Metoprolol [Lopressor] 12.5 mg PO BID #60 tablet 08/31/18 Nitroglycerin 0.4 mg SL [id number] PRN #15 tab.subl 08/31/18 Rosuvastatin [Crestor] 40 mg PO HS #30 tablet 08/31/18 Allergies Allergy/AdvReac Type Severity Reaction Status Date / Time methylprednisolone AdvReac Diarrhea Verified 07/16/18 17:17 [From Medrol] Chest Pain PMH - Past Medical History Medical history: Reports: arthritis, fibromyalgia, hyperlipidemia, hypertension Surgical history: Reports: , other Psychiatric history: Reports: anxiety, depression [employer]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 Absent: respiratory distress - Cardiovascular Cardiovascular exam: Present: normal rhythm, bradycardia. Absent: systolic murmur, diastolic murmur, rubs, gallop - Abdominal Exam Abdominal exam: Present: soft, tenderness. Absent: distention - Extremities Exam Extremities exam: Present: normal inspection. Absent: calf tenderness - Neurological Exam Neurological exam: Present: alert, oriented X3. Absent: motor sensory deficit - Psychiatric Psychiatric exam: Present: anxious - Skin Skin exam: Present: diaphoresis Course - Reevaluation(s) Reevaluation #1: Pulse mostly in the 50s, petr down to 40s. Ordered Atropin 0.5 mg. BP 90/60, ordered NS 500 mL. Time: 12:51 - Consultations Consultation #1: Reviewed case with Dr. Tavares, who is taking patient to laboratory associate. Time: 12:51 Vital Signs Temperature 97.6 F 08/29/18 12:41 Pulse Rate 74 08/29/18 12:41 Respiratory Rate 20 08/29/18 12:41 Blood Pressure 91/60 08/29/18 12:41 O2 Sat by Pulse Oximetry 100 08/29/18 12:41 Temperature 98.1 F 08/31/18 07:18 Pulse Rate 71 08/31/18 07:18 Respiratory Rate 16 08/31/18 07:18 Blood Pressure 119/89 08/31/18 07:18 O2 Sat by Pulse Oximetry 98 08/31/18 07:18 Oxygen Delivery Oxygen Delivery Room Air Chest Pain - Lab Data Result diagrams: 08/30/18 05:25 08/30/18 05:25 Lab Results 08/29/18 08/29/18 08/29/18 Range/Units 12:42 12:42 12:42 WBC 10.1 (4.3-11.1) K/mcL RBC 4.53 (3.82-4.97) M/mcL Hgb 10.8 L (11.5-15.4) g/dL Hct 35.3 (35.3-44.9) % MCV 77.9 L (83.0-100.0) fL MCH 23.8 L (28.0-33.3) pg MCHC 30.6 L (31.6-35.5) g/dL RDW 17.5 H (11.5-14.5) % Plt Count 329 (140-400) K/mcL MPV 9.4 (9.4-12.4) fL Immature Gran % 0.3 (0-4) % Seg Neutrophils % 62.6 % Lymphocytes % 23.0 % Monocytes % 11.4 % Eosinophils % 2.1 % Basophils % 0.6 % Neutrophils # 6.3 (1.6-8.9) K/mcL Lymphocytes # 2.3 (0.6-4.6) K/mcL Monocytes # 1.2 (0.0-1.3) K/mcL Eosinophils # 0.2 (0.0-0.6) K/mcL Basophils # 0.1 (0.0-0.2) K/mcL PT 10.7 (9.4-12.1) Seconds INR 0.9 APTT 29.4 (26.0-36.0) Seconds Sodium 136 (136-145) mEq/L Potassium 3.8 (3.5-5.1) mEq/L Chloride 105 (98-107) mEq/L Carbon Dioxide 24 (23-29) mEq/L BUN 13 (6-20) mg/dL Creatinine 0.70 (0.60-1.20) mg/dL Est GFR ( Amer) > 60 (> 60) Est GFR (Non-Af Amer) > 60 (> 60) BUN/Creatinine Ratio 19 (6-26) Glucose 127 H (70-105) mg/dL Calculated Osmolality 284 (280-300) Calcium 9.3 (8.6-10.3) mg/dL Magnesium 1.8 (1.6-2.6) mg/dL Troponin I < 0.03 (< 0.04) ng/mL - EKG Data EKG attestation: Yes I reviewed and interpreted this EKG. EKG results narrative: EKG at 12:[address] elevation, T wave inversion in aVL. Prehospital EKGs showed dynamic changes with EKG #2 (12:30 pm) clearly showing inferior KS.
[2018-08-29] MEDS ORDERED: *HR* Midazolam HCl 2 MG/2 ML VIAL ONE ×2 (12:50→13:06)
[2018-08-29] MEDS ORDERED: Tirofiban 12.5 MG/250ML 12.5 MG/250 ML BAG ONE (12:50)
[2018-08-29] MEDS ORDERED: *HR* FentaNYL (PF) 100 MCG/2 ML VIAL ONE (12:50)
[2018-08-29] MEDS ORDERED: *HR* Atropine Sulfate 1 MG/10 ML SYRINGE IVP STA (12:51)
--- NOTE | 2018-08-29 12:51 | Pre-Sedation Evaluation ---
Pre-sedation evaluation - Pre-sedation checklist Date of procedure: 08/29/18 Procedure: [facility] Recent Vitals: Last Vital Signs Temp 97.6 F 08/29/18 12:41 Pulse 74 08/29/18 12:41 Resp 20 08/29/18 12:41 BP 91/60 08/29/18 12:41 Pulse Ox 100 08/29/18 12:41 H&P (including ROS) documented in medical record: Yes Previous reaction to sedatives/anesthetics: No Dietary Status: NPO after Midnight Dentition: No loose teeth or bridges ASA Classification *see protocol: CLASS V-Morbid complications, operation only hope of survival, [id number] to any of the above to indicate emergent Plan of Care: Pt appropriate candidate for procedure/moderate/conscious sedation, Risks/benefits of procedure/sedation discussed w/ patient/family, If not NPO; Risk of intake outweiged by necessity to perform procedure Cardiac Registry (Cardio Only) - Functional Capacity Functional Capacity: >=4 METS with symptoms - Clincal Frailty Scale Clinical Frailty Scale: Managing Well
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
[2018-08-29 12:55] LABS: Basophils # 0.1 K/mcL (0.0-0.2); Basophils % 0.6 %; Eosinophils # 0.2 K/mcL (0.0-0.6); Eosinophils % 2.1 %; Hematocrit 35.3 % (35.3-44.9); Hemoglobin 10.8 g/dL (11.5-15.4); Immature Granulocytes % 0.3 % (0-4); Lymphocytes # 2.3 K/mcL (0.6-4.6); Mean Corpuscular HGB Conc 30.6 g/dL (31.6-35.5); Mean Corpuscular Hemoglobin 23.8 pg (28.0-33.3); Mean Corpuscular Volume 77.9 fL (83.0-100.0); Mean Platelet Volume 9.4 fL (9.4-12.4); Monocytes # 1.2 K/mcL (0.0-1.3); Monocytes % 11.4 %; Neutrophils # 6.3 K/mcL (1.6-8.9); Platelet Count 329 K/mcL (140-400); Red Blood Count 4.53 M/mcL (3.82-4.97); Red Cell Distribution Width 17.5 % (11.5-14.5); Segmented Neutrophils % 62.6 %; White Blood Count 10.1 K/mcL (4.3-11.1)
[2018-08-29] MEDS ORDERED: Ondansetron 4 MG/2 ML VIAL IVP PRN (12:55)
[2018-08-29] MEDS ORDERED: Verapamil 5 MG/2 ML VIAL ONE (12:56)
[2018-08-29 13:07] LABS: INR 0.9; Prothrombin Time 10.7 Seconds (9.4-12.1)
[2018-08-29 13:10] LABS: Activated Partial Thrombo Time 29.4 Seconds (26.0-36.0)
[2018-08-29 13:15] LABS: BUN/Creatinine Ratio 19 (6-26); Blood Urea Nitrogen 13 mg/dL (6-20); Calcium 9.3 mg/dL (8.6-10.3); Carbon Dioxide 24 mEq/L (23-29); Chloride 105 mEq/L (98-107); Glucose 127 mg/dL (70-105); Magnesium 1.8 mg/dL (1.6-2.6); Osmolality,Calculated 284 (280-300); Potassium 3.8 mEq/L (3.5-5.1); Sodium 136 mEq/L (136-145); eGFR For African Americans > 60 (> 60); eGFR For Non-African Americans > 60 (> 60)
[2018-08-29 13:16] LABS: Troponin I < 0.03 ng/mL (< 0.04)
[2018-08-29] MEDS ORDERED: Nicotine 21 MG PATCH.TD24 TD PRN (13:32)
[2018-08-29] MEDS ORDERED: Nitroglycerin 0.4 MG TAB.SUBL SL PRN (13:35)
[2018-08-29] MEDS ORDERED: Acetaminophen 325 MG TABLET PO PRN (13:35)
[2018-08-29] MEDS ORDERED: *HR* Atropine Sulfate 1 MG/10 ML SYRINGE IV ONE (13:39)
--- NOTE | 2018-08-29 13:53 | Invasive Diagnostic Lab Proc ---
Name: Joyce Castellon Date of Study: 08/29/2018 Date: 1970 Ht: 66.1in Medical Record#: [id number] Age: 47 Wt: 189.60lb Gender: Female BSA: 1.96 Order #: [id number] BMI: 30.47 Physicians Procedure Physician: Aris Tavares MD, [facility] Referring MD: Referring MD: Staff Name Position Time In Mercedez aPinter RT (R) Scrub 01:05 PM Amy Dennis RT (R) Scrub 01:05 PM Pascual Arroyo RN Call Manager 01:05 PM Mercedez Dominguez RT (R) Monitor 01:05 PM Indications Indication STEMI Procedures Performed Procedure L HRT ARTERY/VENTRICLE ANGIO PRQ CARD REVASC TN 1 VSL Pre-Procedure Checklist Informed consent is complete signed and on chart. H&P is on chart. ID band is on and ID verified with patient. Patient NPO for procedure The procedure was described for the patient and questions were answered. ECG is on chart. Plan of Care Patient will tolerate the procedure without complications. Adequate level of comfort will be maintained. Hemodynamics will remain stable Patient will recover from procedure without complications. Respiratory function will be maintained. Cardiac rhythm will remain stable. Patient temperature will be maintained. Patient and/or family have verbalized understanding of the procedure. Patient Education Intravenous Access Time IV Size Location DC'd Fluid/Drip Rate Units RN 20g 1 1/4" Patent On Arrival Lt Antecubital 0.9NaCl ml/hr 18g 1 1/4" Patent On Arrival Rt Antecubital Allergies methylprednisolone Vital Signs Time BP (mmHg) HR (bpm) O2 Sat. RR (bpm) LOC 01:06 PM / % 3 = Answers simple questions/follows commands 01:06 PM / % 4 = Oriented but drowsy 01:04 PM 116 / 78 81 100 % 19 01:07 PM 120 / 94 84 87 % 11 01:13 PM 102 / 48 80 % 8 01:18 PM 110 / 55 71 96 % 26 01:23 PM 112 / 64 72 100 % 11 01:28 PM 100 / 45 69 100 % 12 Procedural Medications Time Medication Dose Units Method Given By 01:06 PM Versed 2 mg Intravenous Pascual Arroyo RN 01:06 PM Fentanyl 50 mcg Intravenous Pascual Arroyo RN 01:06 PM Lidocaine 2% 0.5 ml Subcutaneous Aris Tavares MD, FACC 01:07 PM Nitroglycerin 200 mcg Verapamil 2.5 mg Intraarterial Aris Tavares MD, FACC 01:08 PM Versed 1 mg Intravenous Pascual Arroyo RN 01:14 PM Aggrastat Bolus: 42 ml Intravenous Pascual Arroyo RN 01:15 PM Aggrastat 12.5mg/250ml 15 ml Intravenous Pascual Arroyo RN 01:16 PM Oxygen 4 L/min nasal cannula Pascual Arroyo RN Zoran Score Preprocedure Postprocedure Activity 2- Moves 4 extremities sustained head lift Activity 2- Moves 4 extremities sustained head lift Circulation 2- SBP +/= 20 points of pre-anesthetic level Circulation 2- SBP +/= 20 points of pre-anesthetic level Consciousness 2- Awake and alert oriented x 3 Consciousness 2- Awake and alert oriented x 3 O2 Saturation 2- Able to maintain O2 satruation of 92% on room air O2 Saturation 2- Able to maintain O2 satruation of 92% on room air Respiratory 2- Able to deep breathe and cough well Respiratory 2- Able to deep breathe and cough well Total Score 10 Total Score 10 Contrast Agent: Isovue Diagnostic Contrast: 95 ml Total Contrast: 95 ml Fluoro Dose: 16 mGy Procedure Log Time Note Enter By 12:50 PM CathStat 01:02 PM CathStat 01:02 PM Vitals capture started with the following parameters, Patient=Adult, Interval=5 min, Initial Nrplcmxl=011 mmHg, Deflation Rate=3 mmHg, Cuff placed on Right Arm 01:02 PM Pt 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 Informed consent was obtained. [email or web address] 01:02 PM Procedure start 13:02 [email or web address] 01:03 PM Recorded ECG: HR=80 Condition=Condition 1 01:04 PM HR=81 bpm, ELWC=211/78 mmhg, OuZ5=998.0 %, Resp=19 B/min 01:05 PM Mercedez Painter RT (R) Position: Scrub Time in: 13:05 [email or web address] 01:05 PM Amy Dennis RT (R) Position: Scrub Time in: 13:05 [email or web address] 01:05 PM Pascual Arroyo RN Position: Call Manager Time in: 13:05 [email or web address] 01:05 PM Pressure channel 1 zero failed. 01:05 PM Mercedez Dominguez RT (R) Position: Monitor Time in: 13:05 [email or web address] 01:05 PM Pressure channel 1 zeroed. 01:05 PM Case Delayed No [email or web address] 01:06 PM Time: 13:06 Versed 2 mg Intravenous Given by Pascual Arroyo RN [email or web address] 01:06 PM Time: 13:06 Fentanyl 50 mcg Intravenous Given by Pascual Arroyo RN [email or web address] 01:06 PM Time: 13:06 Oxygen on at 4 L/min per nasal cannula by Pascual Arroyo RN tsites :06 PM Time: 13:06 Patient comfortable and pain free: Yes [email or web address] :06 PM Time: 13:06LOC: 3 = Answers simple questions/follows commands [email or web address] :06 PM Time out was performed according to hospital policy. Conscious sedation and anesthesia was achieved (see medication log with in this report above) [email or web address] 01:06 PM Time: 13:06 0.5 ml Lidocaine 2% to right radial Subcutaneous Given by Aris Tavares MD, FACC [email or web address] 01:07 PM Access obtained by percutaneous puncture. 5Fr 10cm Terumo Parker sheath placed in right Radial artery. [id number] [email or web address] 01:07 PM Time: 13:07 Patient given 200 mcg Nitroglycerin, and 2.5 mg Verapamil Intraarterial by Aris Tavares MD, FACC. This is given to reduce risk of vessel spasm and thrombosis. [email or web address] 01:07 PM HR=84 bpm, HINW=767/94 mmhg, SpO2=87.0 %, Resp=11 B/min 01:08 PM Inflation device was opened. tsites 01:08 PM 6Fr JR 4 Runway guide catheter was used to cannulate the PCI vessel successfully. reused? No tsites :08 PM Time: 13:08 Versed 1 mg Intravenous Given by Pascual Arroyo RN tsites :09 PM 0.035 260cm Navilyst 3mmJ wire [id number] tsites 01:09 PM RCA angiography performed in multiple views. tsites 01:09 PM .014 PT Graphix 180cm guide wire across target lesion- successful. reused? No tsites 01:12 PM 2.0 mm x 8 mm Emerge Monorail balloon across target lesion- successful. reused? No tsites 01:13 PM Balloon inflated @ 6 shanna for 6 seconds tsites 01:13 PM HR=80 bpm, GFEL=171/48 mmhg, Resp=8 B/min 01:14 PM Balloon inflated @ 10 shanna for 10 seconds tsites 01:14 PM Balloon inflated @ 8 shanna for 8 seconds tsites 01:14 PM Balloon inflated @ 14 shanna for 9 seconds tsites 01:15 PM Time: 13:14 Aggrastat Bolus: 42 ml Intravenous Given by Pascual Arroyo RN Abreu pump tsites 01:15 PM Time: 13:15 Aggrastat 12.5mg/250ml 15 ml Intravenous Given by Pascual Arroyo RN Abreu pump tsites 01:16 PM Recorded Pressure: Ao, HR=65, Condition=Condition 1 (Aorta) Ao 93/49/68 01:16 PM Balloon catheter removed intact. tsites 01:17 PM 2.25mm x 12mm Synergy drug-eluting stent across target lesion- successful Lot #[id number] tsites 01:18 PM HR=71 bpm, FQKW=801/55 mmhg, SpO2=96.0 %, Resp=26 B/min 01:20 PM Stent deployed @ 12 shanna for 22 seconds tsites 01:21 PM Guide wire removed intact. tsites 01:21 PM Stent delivery system removed intact. tsites :21 PM Time: 13:06 Patient comfortable and pain free: Yes tsites :21 PM Time: 13:06LOC: 4 = Oriented but drowsy tsites 01:23 PM HR=72 bpm, MWYQ=668/64 mmhg, NiG9=792 %, Resp=11 B/min 01:23 PM Guide catheter removed intact. tsites 01:23 PM 5Fr TIG catheter inserted over the wire [facility] tsites 01:23 PM LCA angiography performed in multiple views. tsites 01:24 PM Recorded Pressure: Ao, HR=71, Condition=Condition 1 (Aorta) Ao 90/60/74 01:25 PM Coronary Dominance: right tsites 01:26 PM Lesion found in RPLV. Pre Stenosis: 99 Pre TERRANCE Flow: 1: Slow Penetration without Perfusion tsites 01:26 PM Right Coronary, Right Posterior Descending Arteries with Right Posterolateral and Acute Marginal branches with 99 % stenosis. If graft is supplying this area, 0 % stenosis tsites 01:26 PM Proximal Left Anterior Descending Coronary Artery with 100% stenosis. If graft is supplying this territory, 0 % stenosis. tsites 01:26 PM Lesion found in Proximal LAD. Pre Stenosis: 100 Pre TERRANCE Flow: 0: No Flow/No perfusion tsites 01:27 PM Catheter removed tsites :28 PM 5Fr Pigtail catheter inserted over the wire [facility] tsites 01:28 PM Catheter crossed the aortic valve and was selectively placed in the left ventricle. Pressures recorded on pullback for left heart catheterization. tsites 01:28 PM HR=69 bpm, LLUA=333/45 mmhg, BrK2=505 %, Resp=12 B/min 01:28 PM Pressure channel 1 zeroed. 01:28 PM Recorded Pressure: LV, HR=69, Condition=Condition 1 (Left Ventricle) LV 101/10/26 01:28 PM Bolus angiogram of left Ventricle complete: 10 ml/sec for a total of 30 mls tsites 01:29 PM Recorded Pressure: LV, Ao, HR=70, Condition=Condition 1 (Left Ventricle) LV 104/12/19, (Aorta) Ao 111/58/85 01:29 PM Catheter removed tsites 01:30 PM Procedure completed at 13:30 08/29/2018 tsites 01:30 PM Did you address TERRANCE flow and Dominance? YesCoronary Dominance: right tsites 01:30 PM Sign out completed: Radiation Dose 214 mGy, 16.1 Gy/cm2 Fluoro Time: 6.5 Isovue 370 - 200ml contrast 95 ml given by Aris Tavares MD, [facility]. Complications: None. The patient was discharged out of the label fuser tender in stable condition. Sedation minutes 24. Cardiac Rehab Consult needed: Yes. Confirmed administered medications: Yes tsites 01:31 PM Isovue 370 - 200ml,1 Bottle(s) used. tsites 01:31 PM Arterial sheath pulled, Vasc Band closure device used and was Successful S/N. tsites 01:31 PM 11 ml air in Vasc Band. tsites 01:31 PM Estimated Blood Loss: minimal tsites 01:31 PM Post ECG NSR tsites 01:31 PM Post Blood Pressure 100/45 tsites 01:31 PM 13:31 Post Pulses Rt Radial 1+ tsites 01:32 PM Information taught Cardiac Cath, PCI, and Vasc Band tsites 01:32 PM Education needs Procedure, Plan of Care, and Responsibilities of Patient in Care tsites 01:32 PM Learning barriers :None tsites 01:32 PM Education Methods Verbal tsites 01:32 PM Education evaluation Able to repeat information tsites 01:32 PM Site status No bleeding/ No Hematoma - Rt Wrist as reported by Amy Dennis RT (R) at 13:32 tsites 01:32 PM Plavix, Effient or Brilinta given Yes in ER tsites 01:32 PM Vitals capture stopped. 01:33 PM Report given to aria AVITIA Pt taken to ICU Room #4. 13:33 tsites 01:33 PM Delay to floor No tsites 01:33 PM Patient out of room: 13:33 tsites 01:33 PM Family placed in consult room. tsites Complications Complication None Hemodynamics Pressures Site Systolic/A Wave Diastolic/V Wave Mean AO 93 49 68 AO 90 60 74 LV 101 10 26 LV 104 12 19 AO 111 58 85 Post Procedure Information Blood Pressure: 100/45 mmHg Rhythm: NSR Post procedural instructions were given Closure Device Time Device Success/Fail 08/29/2018 1:36:00 PM Mechanical Compression Successful Site Checks Time Location Status Staff Sheath In? Note 01:32 PM Rt Wrist No bleeding/ No Hematoma Amy Dennis RT (R) Pulses Time Site Pre-Procedure Post-Procedure Note Bilateral radial 2+ Bilateral DP & PT 1+ 1:31:00 PM Rt Radial 1+ Updated by Ashley Rg RT(R) on 08/29/2018 1:45:12 PM electronically signed on 08/29/2018 1:45:59 PM with status of Final
[2018-08-29] MEDS: *HR* LORazepam 0.5 MG TABLET PO PRN ×2 (14:14→20:28)
[2018-08-29] MEDS: *HR* Ticagrelor 90 MG TABLET PO SCH (20:28)
[2018-08-30 05:48] LABS: Eosinophils % 2.4 %; Hematocrit 33.4 % (35.3-44.9); Hemoglobin 10.2 g/dL (11.5-15.4); Immature Granulocytes % 0.3 % (0-4); Lymphocytes % 15.3 %; Mean Corpuscular HGB Conc 30.5 g/dL (31.6-35.5); Mean Corpuscular Hemoglobin 24.3 pg (28.0-33.3); Mean Corpuscular Volume 79.5 fL (83.0-100.0); Mean Platelet Volume 9.4 fL (9.4-12.4); Monocytes % 8.9 %; Platelet Count 291 K/mcL (140-400); Red Cell Distribution Width 17.9 % (11.5-14.5); Segmented Neutrophils % 72.7 %; White Blood Count 9.9 K/mcL (4.3-11.1)
[2018-08-30] MEDS: *HR* HYDROcodone/Acet 5/325 mg TABLET PO PRN ×5 (05:48→23:03)
[2018-08-30 05:49] LABS: Basophils % 0.4 %; Eosinophils # 0.2 K/mcL (0.0-0.6); Lymphocytes # 1.5 K/mcL (0.6-4.6); Monocytes # 0.9 K/mcL (0.0-1.3); Neutrophils # 7.2 K/mcL (1.6-8.9)
[2018-08-30] MEDS ORDERED: *HR* Enoxaparin 40 MG/0.4 ML SYRINGE SQ SCH (06:00)
[2018-08-30 06:07] LABS: BUN/Creatinine Ratio 15 (6-26); Blood Urea Nitrogen 10 mg/dL (6-20); Calcium 8.6 mg/dL (8.6-10.3); Carbon Dioxide 23 mEq/L (23-29); Chloride 107 mEq/L (98-107); Glucose 102 mg/dL (70-105); Osmolality,Calculated 281 (280-300); Potassium 3.8 mEq/L (3.5-5.1); Sodium 136 mEq/L (136-145); eGFR For African Americans > 60 (> 60); eGFR For Non-African Americans > 60 (> 60)
[2018-08-30] MEDS: *HR* Ticagrelor 90 MG TABLET PO SCH (08:13)
[2018-08-30] MEDS ORDERED: Aspirin 81 MG TAB.CHEW PO SCH (09:00)
--- NOTE | 2018-08-30 12:38 | Cardiology Progress Note ---
Date of Encounter: 08/30/18 Time of Encounter: 10:00 Assessment and Plan (1) ST elevation myocardial infarction (STEMI) Current Visit: Yes Status: Acute Per cardiology: -Admitted as STEMI, taken emergently to woods laborer. -Prelim report reveiwed with CASANDRA to [facility], has 100% LAD DOORKEEPER. -Denies chest pain. -TTE with LVEF preserved, no wall motion abnormalities noted. -ON asa, statin, brilinta. Educated on dual anti-platelet therapy uninterrupted for at least one year, states understanding. -Right radial access site without ecchymosis or hematoma. -Continue current medical therapy. Will add BB. -Will step down out of ICU today. Qualifiers: Involved coronary artery: other inferior wall coronary artery Qualified Code(s): I21.19 - ST elevation (STEMI) myocardial infarction involving other coronary artery of inferior wall (2) Nicotine dependence Current Visit: Yes Status: Acute Per cardiology: -Known nicotine dependence. -Has nicotine patch ordered. -SMoking cessation education provided. Qualifiers: Nicotine product type: cigarettes Substance use status: uncomplicated Qualified Code(s): F17.210 - Nicotine dependence, cigarettes, uncomplicated (3) DVT prophylaxis Current Visit: No Status: Acute Per cardiology: -ON DVT dose lovenox. Discussion w patient/family: The assessment and plan as outlined above was discussed with the patient who expressed understanding and agreement. All questions were answered. Thank you for involving us in the care of your patient. Please call with any questions. Discussed and reviewed with Subjective Principal diagnosis: STEMI Interval history: Patient denies chest pain. Denies shortness of breath. Reports mild headache. Objective Vital Signs, Last 4 Hours Temp Pulse Resp BP Pulse Ox 08/30/18 12:00 70 20 135/88 100 08/30/18 11:23 98.2 F 08/30/18 09:50 81 20 148/91 100 General: Conversant, No Apparent Distress HEENT: Atraumatic, Normocephaly, Mucus Membranes Moist Neck: No JVD, Normal carotid pulses Cardiac: Reg Rate and Rhythm, Normal S1 and S2, No Murmur Lungs: Normal Breath Sounds, No Wheeze, Rales, Rhonchi Neuro: Alert and responsive, No focal deficits noted Abdomen: Soft, Non-Tender Skin: No rashes noted on visualized skin, Other (Right radial access site without hematoma or ecchymosis. ) Musculoskeletal: No Chest Wall Tenderness Extremities: No Clubbing, No Cyanosis, No Edema, Normal Pulses Results 08/30/18 05:25 08/30/18 05:25 Lab Results Impressions Echocardiogram 08/29/18 12:55 Impressions: LVEF 65%. Mild left ventricular diastolic dysfunction. Normal right ventricular structure and function. No significant valvular dysfunction. No pulmonary hypertension. Active Medications Acetaminophen (Tylenol) 500 mg PO Q6HR PRN PRN Reason: Mild Pain Stop: 02/28/19 12:56 Last Admin: 08/29/18 13:58 Dose: 500 mg Documented by: Acetaminophen (Tylenol) 650 mg PO Q6HR PRN PRN Reason: Mild Pain Stop: 02/28/19 13:36 Hydrocodone Bitart/Acetaminophen ([place] 5-325 Mg) 1 tab PO Q4HR PRN PRN Reason: Moderate Pain Stop: 02/28/19 13:36 Last Admin: 08/30/18 09:49 Dose: 1 tab Documented by: Aspirin (Aspirin) 81 mg PO DAILY [facility] Stop: 03/01/19 09:01 Last Admin: 08/30/18 08:13 Dose: 81 mg Documented by: Diphenhydramine HCl (Benadryl) 25 mg PO HS PRN PRN Reason: Insomnia Stop: 02/28/19 13:36 Enoxaparin Sodium (Lovenox) 40 mg SQ 0600 [facility]; Protocol Stop: 03/01/19 06:01 Last Admin: 08/30/18 05:26 Dose: 40 mg Documented by: Hydralazine HCl (Hydralazine) 20 mg IVP Q6HR PRN PRN Reason: Hypertension Stop: 02/28/19 13:38 Lorazepam (Ativan) 0.5 mg PO Q4HR PRN PRN Reason: Anxiety Stop: 02/28/19 13:39 Last Admin: 08/29/18 20:28 Dose: 0.5 mg Documented by: Metoprolol Tartrate (Lopressor) 12.5 mg PO BID [facility] Stop: 03/01/19 21:01 Nicotine (Nicoderm) 21 mg TD DAILY PRN; Protocol PRN Reason: Nicotine Cravings Stop: 03/01/19 09:01 Nitroglycerin (Nitroglycerin) 0.4 mg SL Q5MPRN PRN PRN Reason: Chest Pain Stop: 02/28/19 13:36 Ondansetron HCl (Zofran) 4 mg IVP Q8HR PRN PRN Reason: Nausea And Vomiting Stop: 02/28/19 12:56 Rosuvastatin Calcium (Crestor) 40 mg PO HS BRE Stop: 02/28/19 21:01 Last Admin: 08/29/18 20:28 Dose: 40 mg Documented by: Ticagrelor (Brilinta) 90 mg PO BID BRE Stop: 02/28/19 21:01 Last Admin: 08/30/18 08:13 Dose: 90 mg Documented by: Left Ventricular Wall Motion: Rest Echo Findings All wall segments showed normal motion. Findings: Study Quality * Technically adequate exam. ECG Findings * Normal sinus rhythm. Left Ventricle * LVEF 65%. * Normal LV chamber size, wall thickness and function. * Mild left ventricular diastolic dysfunction. Right Ventricle * Normal right ventricular structure and function. Left Atrium * Normal left atrial size. Right Atrium * Normal right atrial size. Mitral Valve * Normal mitral valve structure. * No mitral stenosis. * No mitral regurgitation. Aortic Valve * No aortic regurgitation. * Trileaflet aortic valve. * No aortic stenosis. Tricuspid Valve * Normal tricuspid valve structure. * Trace tricuspid regurgitation. * Estimated RA pressure is 3 mmHg. Pulmonic Valve * Pulmonic valve is not well visualized. * No pulmonic stenosis. * No pulmonic regurgitation. Pulmonary Artery * Pulmonary artery not well visualized. Aorta * Normally sized aortic root. Pericardium * There is no pericardial effusion present. Interatrial Septum * No evidence of PFO by color Doppler. IVC * Normal IVC dimensions and inspiratory collapse. Laboratory Tests 08/30/18 08/30/18 05:25 05:25 Hgb 10.2 L Creatinine 0.65 - Imaging and Cardiology Chest Xray: report reviewed Echo: report reviewed Cardiac cath: report reviewed Consult Discharge Plan - Plan Referrals: Emre Jin DO [Primary Care Provider] -
[2018-08-30] MEDS ORDERED: Acetaminophen 325 MG TABLET PO PRN (13:09)
[2018-08-30] MEDS ORDERED: Nitroglycerin 0.4 MG TAB.SUBL SL PRN (13:09)
[2018-08-30] MEDS ORDERED: *HR* LORazepam 0.5 MG TABLET PO PRN (13:09)
[2018-08-30] MEDS ORDERED: Nicotine 21 MG PATCH.TD24 TD PRN (13:09)
[2018-08-30] MEDS ORDERED: Ondansetron 4 MG/2 ML VIAL IVP PRN (13:09)
[2018-08-30] MEDS ORDERED: NON-FORMULARY MEDICATION 1 EACH EACH (Gabapentin 800 MG) PO SCH (15:00)
[2018-08-30] MEDS ORDERED: *HR* Ticagrelor 90 MG TABLET PO SCH (21:00)
[2018-08-31] MEDS ORDERED: *HR* Enoxaparin 40 MG/0.4 ML SYRINGE SQ SCH (06:00)
[2018-08-31 07:20] VITALS: BP 119/89
[2018-08-31] MEDS ORDERED: NON-FORMULARY MEDICATION 1 EACH EACH (Fluoxetine Hcl [Fluoxetine Hcl] 40 MG) PO SCH (09:00)
[2018-08-31] MEDS ORDERED: Aspirin 81 MG TAB.CHEW PO SCH (09:00)
--- NOTE | 2018-08-31 09:23 | Electrocardiograph Report ---
[facility] Date: 2018-08-29 Pat Name: Joyce Castellon Department: 104 Room: 2NE25 Gender: F Apns: [place] : 1970 Requested By: Rhonda Ramírez Order Number: [id number] Reading MD: Isaiah Hansen Measurements Intervals [place] Rate: 63 P: 77 NV: 163 QRS: 55 QRSD: 90 T: 86 QT: 411 QTc: 419 Interpretive Statements SINUS RHYTHM MODERATE ST DEPRESSION Electronically Signed On 08-31-2018 9:21:46 EDT by Isaiah Hansen
--- NOTE | 2018-08-31 12:45 | Discharge Summary ---
- NOTES TO OUTPATIENT PROVIDER Notes to Outpatient Provider: Admitted with STEMI Orders not resulted at time of discharge: Pending orders 08/29/18 12:55 ECG 12 lead ECG [ECG] Routine ECG 12 lead ECG [ECG] Stat 08/30/18 07:00 ECG 12 lead ECG [ECG] Routine Date of Encounter: 08/31/18 Time of Encounter: 10:30 - Discharge Diagnosis (1) ST elevation myocardial infarction (STEMI) Priority: Primary Status: Acute Comments: Admitted as STEMI Qualifiers: Involved coronary artery: other inferior wall coronary artery Qualified Code(s): I21.19 - ST elevation (STEMI) myocardial infarction involving other coronary artery of inferior wall (2) Nicotine dependence Priority: Secondary Status: Acute Comments: Known Qualifiers: Nicotine product type: cigarettes Substance use status: uncomplicated Qualified Code(s): F17.210 - Nicotine dependence, cigarettes, uncomplicated (3) DVT prophylaxis Priority: Secondary Status: Acute - Hospital Course Hospital course: Ms. Castellon is a 47 year old female who was admitted with STEMI. 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 Patient is on asa, statin, BB, plavix. Educated on importance of dual anti-platelet therapy uninterrupted for at least one year, states understanding. Patient has been chest pain free since [facility]. TTE with LVEF preserved, no wall motion abnormalities noted. Patient has been educated to stop smoking. Patient is being prepped for discharge home in stable condition. Of note, patient reports difficultly affording medications. Call [facility] and plavix noted to be $9/month. Patient states she can afford to buy asa and plavix now, states she will tack picker statin and BB when she can afford to. Will send a message to office to attempt to get assistance for patient also. Right radial access site without ecchymosis or hematoma. Right radial access site management education reviewed with patient, states understanding. Patient will follow with [facility], follow up set. - Time Spent with Patient Total time spent providing and/or coordinating discharge services: Less than 30 minutes - Discharge Medications Prescriptions: New Aspirin 81 mg PO DAILY #30 tab.chew Rosuvastatin [Crestor] 40 mg PO HS #30 tablet Metoprolol [Lopressor] 12.5 mg PO BID #60 tablet Nitroglycerin 0.4 mg SL Q5MPRN PRN #15 tab.subl PRN Reason: Chest Pain Clopidogrel [Plavix] 75 mg PO DAILY #30 tablet Discontinued Gabapentin 800 mg PO TID #21 tablet FLUoxetine HCl [Fluoxetine HCl] 40 mg PO DAILY #7 capsule Home Medications: Aspirin 81 mg PO DAILY #30 tab.chew 08/31/18 [Rx] Clopidogrel [Plavix] 75 mg PO DAILY #30 tablet 08/31/18 [Rx] Metoprolol [Lopressor] 12.5 mg PO BID #60 tablet 08/31/18 [Rx] Nitroglycerin 0.4 mg SL Q5MPRN PRN #15 tab.subl 08/31/18 [Rx] Rosuvastatin [Crestor] 40 mg PO HS #30 tablet 08/31/18 [Rx] Allergies/Adverse Reactions: Allergy/AdvReac Type Severity Reaction Status Date / Time methylprednisolone AdvReac Diarrhea Verified 07/16/18 17:17 [From Medrol] Date of admission: 08/29/18 12:47 Primary care physician: Emre Jin DO Consults: 08/29/18 12:55 Consult to Cardiac Rehabilitation-Phase1 [CONS] Routine Comment: Reason for Consult: AMI Call Completed: Yes Consult to Nurse Navigator [CONS] Routine Comment: 08/29/18 14:10 Consult to Track Supervisor [CONS] Routine Reason for SW Consult: hasn't been taking home meds d/t she can't afford them. Works at [employer] Discharging clinician: Cecilia Ly Anticipated date of discharge: 08/31/18 Physical Examination Vital Signs Temperature 97.6 F 08/29/18 12:41 Pulse Rate 74 08/29/18 12:41 Respiratory Rate 20 08/29/18 12:41 Blood Pressure 91/60 08/29/18 12:41 O2 Sat by Pulse Oximetry 100 08/29/18 12:41 Temperature 98.1 F 08/31/18 07:18 Pulse Rate 71 08/31/18 07:18 Respiratory Rate 16 08/31/18 07:18 Blood Pressure 119/89 08/31/18 07:18 O2 Sat by Pulse Oximetry 98 08/31/18 07:18 Oxygen Delivery Oxygen Delivery Room Air General: Conversant, No Apparent Distress HEENT: Atraumatic, Normocephaly, Mucus Membranes Moist Neck: No JVD, Normal carotid pulses Cardiac: Reg Rate and Rhythm, Normal S1 and S2, No Murmur Lungs: Normal Breath Sounds, No Wheeze, Rales, Rhonchi Neuro: Alert and responsive, No focal deficits noted Abdomen: Soft, Non-Tender Skin: No rashes noted on visualized skin Musculoskeletal: No Chest Wall Tenderness Extremities: No Clubbing, No Cyanosis, No Edema, Normal Pulses - Patient Status Disposition: Home, Self-Care Condition: Fair Functional capacity at discharge: independent ambulation Overall status at discharge: patient is progressing back to baseline - Discharge Instructions Follow Up With: Emre Jin DO [Primary Care Provider] - Additional Instructions: RISK FACTORS: STOP SMOKING: If you smoke, STOP. Smoking or tobacco use significantly increases your risk of heart disease because nicotine causes the arteries to narrow or constrict. It also causes fats to stick to the artery. Your chances of having a heart attack are greatly increased if you continue to smoke. For more information, call the education line for smoking cessation 8-534-ZAINSOS EAT A LOW FAT/CHOLESTEROL/SODIUM DIET: This diet may help reduce your chances of having a heart attack. LIFTING: With affected extremity: Avoid bending, pushing off and lifting more than 2 pounds for 24 hours The following 48 hours, avoid lifting anything more than 5 pounds Avoid strenuous activity or repetitive motions ACTIVITY: You may walk or climb stairs as tolerated You can resume sexual activity as tolerated In general, you are encouraged to engage in a minimum of 30 minutes or more of moderate intensity physical activity, such as brisk walking, daily or at least 3-4 times weekly BATHING Do not submerge the site into water (bath tub, hot tub, swimming pool, dishes) for 1 week. This can be a source for infection into the blood stream. You may shower after 24 hours SITE CARE: After 24 hours, you may remove the dressing and leave the site open to air. Keep the site clean and dry. Clean gently and pat dry. You can expect bruising and tenderness that gradually resolve within a week or two. Return to work as instructed per your physician Resume driving as instructed per physician Keep all scheduled follow up appointments Resume medications as instructed IMPORTANT: If prescribed a Platelet Aggregation Inhibitor such as, Plavix, Brilinta or Effient: Duration of therapy is minimum one year These medications are often used in combination with Aspirin in prevention of future heart attacks Never discontinue unless consult with your Hospital Receiving Clerk STROKE (CVA) Risk factors for a stroke are: Age, cigarette smoking, diabetes, excessive alcohol consumption, family history, high blood pressure, overweight, physical inactivity, prior stroke, heart attack, diagnosis of carotid artery stenosis or other artery disease. Warning signs: Sudden numbness or weakness of the face, arm or leg; especially on one side of the body, sudden confusion, trouble speaking or understanding, sudden trouble seeing in one or both eyes, sudden trouble walking, dizziness, loss of balance or coordination, sudden severe headache with no cause. Call 911 or go to the Emergency Room. CONGESTIVE HEART FAILURE: If you have been diagnosed with Congestive Heart Failure (CHF) and your symptoms return, make an appointment with your physician Weigh yourself daily. Notify your physician if you have a weight gain of two or more pounds in one day or five or more pounds in one week. If you experience any difficulty breathing, please call 911 BLEEDING: Although the risk of bleeding is minimal, it can happen. If you have any bleeding from the site, apply firm pressure above the puncture site for 10-15 m inutes. If the bleeding does not stop, continue manual pressure and call 911 Contact [facility] ( ) if: You develop a fever greater than 101 degrees Fahrenheit Your site becomes reddened or has any drainage You have an increase in pain or burning at the site or if a large knot forms at the site. If you experience chest pain, shortness of breath, dizziness, or extreme tiredness, stop the activity and rest. Please notify [facility] office if you experience any of these symptoms and they are not relieved by rest please call 911! - Diet and Activity Activity: increase activity as tolerated (Follow restrictions as above. ) Diet: low fat, low cholesterol, low salt diet
== END 2018-08-31 13:40 | disposition home or self-care (01) | DRG 247 ==
LOC: EMEROOARM 12:33 → ICNU 12:47 → 2NENU 08-30 16:03
PROVIDERS: ADMIT Emergency Medicine; ATTEND Emergency Medicine

== ENCOUNTER 2018-09-14 15:33 | Observation (INO) ==
--- NOTE | 2018-09-14 15:39 | Emergency Department Note ---
Disposition Clinical Impression: Chest pain Qualifiers: Chest pain type: unspecified Qualified Code(s): R07.9 - Chest pain, unspecified Disposition: Admitted As Inpatient Condition: Good Time of Disposition: 17:45 General Adult HPI - General Stated complaint: chest pain Time Seen by Provider: 09/14/18 15:33 - Related Data Previous Rx's Medication Instructions Recorded Aspirin 81 mg PO DAILY #30 tab.chew 08/31/18 Clopidogrel [Plavix] 75 mg PO DAILY #30 tablet 08/31/18 Allergies Allergy/AdvReac Type Severity Reaction Status Date / Time methylprednisolone AdvReac Diarrhea Verified 07/16/18 17:17 [From Medrol] Past Medical History - Past Medical History Medical history: Reports: arthritis, fibromyalgia, hyperlipidemia, hypertension Surgical history: Reports: , other Psychiatric history: Reports: anxiety, depression RV DETAILER history: Reports: no RV DETAILER history - Social History Smoking Status: Current every day smoker Smokeless Tobacco Status: No Alcohol use: Reports: none Drug use: Reports: none Course Vital Signs Temperature 98 F 09/14/18 15:41 Pulse Rate 87 09/14/18 15:41 Respiratory Rate 20 09/14/18 15:41 Blood Pressure 154/93 09/14/18 15:41 O2 Sat by Pulse Oximetry 100 09/14/18 15:41 Temperature 98 F 09/14/18 15:41 Pulse Rate 95 09/14/18 16:34 Respiratory Rate 17 09/14/18 16:34 Blood Pressure 122/83 09/14/18 16:34 O2 Sat by Pulse Oximetry 97 09/14/18 16:34 Oxygen Delivery Oxygen Delivery Room Air Medical Decision Making - Lab Data Result diagrams: 09/14/18 15:37 09/14/18 15:37 Lab Results 09/14/18 09/14/18 Range/Units 15:37 15:37 WBC 8.4 (4.3-11.1) K/mcL RBC 4.34 (3.82-4.97) M/mcL Hgb 10.7 L (11.5-15.4) g/dL Hct 34.5 L (35.3-44.9) % MCV 79.5 L (83.0-100.0) fL MCH 24.7 L (28.0-33.3) pg MCHC 31.0 L (31.6-35.5) g/dL RDW 18.2 H (11.5-14.5) % Plt Count 312 (140-400) K/mcL MPV 8.9 L (9.4-12.4) fL Immature Gran % 0.4 (0-4) % Seg Neutrophils % 63.8 % Lymphocytes % 23.2 % Monocytes % 8.9 % Eosinophils % 3.0 % Basophils % 0.7 % Neutrophils # 5.4 (1.6-8.9) K/mcL Lymphocytes # 2.0 (0.6-4.6) K/mcL Monocytes # 0.8 (0.0-1.3) K/mcL Eosinophils # 0.3 (0.0-0.6) K/mcL Basophils # 0.1 (0.0-0.2) K/mcL Sodium 140 (136-145) mEq/L Potassium 3.4 L (3.5-5.1) mEq/L Chloride 110 H (98-107) mEq/L Carbon Dioxide 22 L (23-29) mEq/L BUN 10 (6-20) mg/dL Creatinine 0.75 (0.60-1.20) mg/dL Est GFR ( Amer) > 60 (> 60) Est GFR (Non-Af Amer) > 60 (> 60) BUN/Creatinine Ratio 13 (6-26) Glucose 112 H (70-105) mg/dL Calculated Osmolality 290 (280-300) Calcium 9.2 (8.6-10.3) mg/dL Total Bilirubin 0.3 (0.3-1.0) mg/dL AST 19 (13-39) Units/L ALT 17 (7-52) Units/L Alkaline Phosphatase 82 (34-104) Units/L Troponin I < 0.03 (< 0.04) ng/mL Serum Total Protein 7.2 (6.4-8.9) g/dL Albumin 3.9 (3.5-5.7) g/dL Globulin 3.3 (2.4-3.5) g/dL Albumin/Globulin Ratio 1.2 (1.1-2.2) Attestation Statement - Attestation Attestation: I reviewed the residents documentation and agree with the residents assessment and plan of care. I have personally had face to face time with the patient. (Brief History, Brief Exam, and MDM) I personally supervised and was present for the jiménez/critical portions of the following procedures completed by the resident: (add procedures performed here). [id number] time provided I attest to supervising the resident physician's interpretation of the ECG. Patient presents to the emergency department with chest discomfort. She thinks she may have overheated recently while working at [employer]. She underwent cardiac catheterization for a myocardial infarction on 08/29/18 and had a stent deployed. She does not appear in any acute distress on exam
--- NOTE | 2018-09-14 15:54 | Emergency Department Note ---
Disposition Clinical Impression: Chest pain Qualifiers: Chest pain type: unspecified Qualified Code(s): R07.9 - Chest pain, unspecified Disposition: Admitted As Inpatient Condition: Good Instructions: Chest Pain (ED) Referrals: NONE,PCP [Primary Care Provider] - Time of Disposition: 16:56 Chest Pain HPI - General Stated Complaint: chest pain Time Seen by Provider: 09/14/18 15:33 Source: patient, EMS Mode of arrival: EMS Limitations: no limitations Vital Signs Reviewed: Yes Nursing Notes Reviewed: Yes - History of Present Illness HPI Narrative: 47-year-old female past medical history of myocardial infarction with stent placement on 08/29/2018. Patient states that she woke with the symptoms at approximately 10 AM this morning which worsened throughout the day while she was at work. The patient states she is experiencing 7 out of 10 "chest discomfort" which feels a heaviness in the center of her chest without radiation. Patient also admits to some lightheadedness dizziness. Patient denies numbness or paresthesias she has had no nausea or vomiting pain does not radiate to the back. Patient states these symptoms are similar to the symptoms she had prior to her heart attack and she became nervous as she did not know if this was related to her heart or not. Patient received 324 mg of aspirin in route by EMS. Vitals were otherwise stable patient was alert and oriented there are no acute ischemic EKG changes noted. Upon my initial evaluation patient is sitting upright in hospital as she is awake alert oriented engaged conversation answering questions appropriately. The patient is noncyanotic, nondiaphoretic, no color change. Concern for ACS we will perform troponin EKG/old EKG chest x- ray, basic labs will give nitroglycerin trial for the management of patient's pain. Pt complaint: chest pain Onset (ago): hour(s) Duration: constant Onset: during rest Pain Location: substernal Severity: moderate Severity scale (1-10): 7 Quality: tightness, heaviness, dull Pain Radiation: none Associated symptoms: Reports: other (Lightheadedness/dizziness) Treatments prior to arrival chest pain: aspirin - Related Data Previous Rx's Medication Instructions Recorded Aspirin 81 mg PO DAILY #30 tab.chew 08/31/18 Clopidogrel [Plavix] 75 mg PO DAILY #30 tablet 08/31/18 Allergies Allergy/AdvReac Type Severity Reaction Status Date / Time methylprednisolone AdvReac Diarrhea Verified 07/16/18 17:17 [From Medrol] Review of Systems: *See History of Present Illness for more detail Constitutional: Denies: fever, chills Cardiovascular: Admits: chest pain Respiratory: Admits: dyspnea, denies: hemoptysis Gastrointestinal: Denies: abdominal pain, nausea, vomiting, diarrhea, constipation, hematemesis, melena, hematochezia Genitourinary: Denies: hematuria Musculoskeletal: Denies: back pain, neck pain Neurological: Patient admits to lightheadedness/dizziness Denies: headache, weakness, numbness, paresthesias, difficulty with ambulation. Endocrine: Denies: fatigue All systems ED: reviewed and negative except as stated. Review of Systems: As Per HPI Chest Pain PMH - Past Medical History Medical history: Reports: arthritis, fibromyalgia, hyperlipidemia, hypertension, myocardial infarction Surgical history: Reports: , other Psychiatric history: Reports: anxiety, depression INSPECTOR TYPE history: Reports: no INSPECTOR TYPE history - Social History Smoking Status: Current every day smoker Alcohol use: Reports: none Drug use: Reports: none Physical Exam Constitutional: No acute distress, [id number], engaged to conversation, speech is fluid, answers questions appropriately Neuro: GCS 15, no overt focal neurological deficits Head: Atraumatic, normocephalic Eyes: Pupils equal, round and reactive to light, no scleral icterus, no conjunctival injection Neck: Trachea midline without deviation. Anterior neck is supple without swelling. *Chest: Symmetric chest wall rise *Heart: Cardiac rhythm and rate are regular with S1 and S2 , no S3 or S4 appreciated, no murmurs, gallops, rubs, or clicks. *Lungs: Lungs are clear to auscultation bilaterally, without accessory muscle use or prolonged expiratory phase. No wheezes, rhonchi or stridor appreciated. Abdomen: Abdomen is flat, soft to palpation, normal bowel sounds. No abdominal bruit auscultated. Non-distended, non-rigid, no organomegaly, no ascites appreciated. No pulsatile mass, no tenderness or guarding to palpation in all four quadrants, no rebound Extremities: Normal capillary refill without evidence of pedal edema, joint swelling or erythema. Pulses/motor intact in all 4 extremities. Psychiatric exam: Patient displays a normal affect and mood for the environment. No overt signs of hallucination. Integumentary: warm, dry, intact, normal color. No rash, cyanosis, diaphoresis, erythema, or pallor - General Limitations: no limitations General appearance: alert, in no apparent distress Course Course Narrative: CBC, CMP, EKG/old EKG, troponin, chest x-ray Nitroglycerin trial. Vital Signs Temperature 98 F 09/14/18 15:41 Pulse Rate 87 09/14/18 15:41 Respiratory Rate 20 09/14/18 15:41 Blood Pressure 154/93 09/14/18 15:41 O2 Sat by Pulse Oximetry 100 09/14/18 15:41 Temperature 98 F 09/14/18 15:41 Pulse Rate 95 09/14/18 16:34 Respiratory Rate 17 09/14/18 16:34 Blood Pressure 122/83 09/14/18 16:34 O2 Sat by Pulse Oximetry 97 09/14/18 16:34 Oxygen Delivery Oxygen Delivery Room Air Chest Pain - MDM Narrative Medical decision making narrative: Patient's heart score is 4. Patient's laboratory, EKG and imaging results are n egative for acute pathology. Shared decision making was utilized at the bedside regarding admission versus discharge. Patient states that given her recent history of myocardial infarction with stenting in the setting of chest pain patient would prefer to be admitted for repeat troponin/EKG for ACS rule out. Patient will be admitted to hospital medicine service for further evaluation and management. Patient is hemodynamically stable time of admission. Information was relayed to the hospitalist regarding this patient and Dr. Major except admission. - Lab Data Lab results reviewed: Yes I reviewed the patient's lab results. Result diagrams: 09/14/18 15:37 09/14/18 15:37 Lab Results 09/14/18 09/14/18 Range/Units 15:37 15:37 WBC 8.4 (4.3-11.1) K/mcL RBC 4.34 (3.82-4.97) M/mcL Hgb 10.7 L (11.5-15.4) g/dL Hct 34.5 L (35.3-44.9) % MCV 79.5 L (83.0-100.0) fL MCH 24.7 L (28.0-33.3) pg MCHC 31.0 L (31.6-35.5) g/dL RDW 18.2 H (11.5-14.5) % Plt Count 312 (140-400) K/mcL MPV 8.9 L (9.4-12.4) fL Immature Gran % 0.4 (0-4) % Seg Neutrophils % 63.8 % Lymphocytes % 23.2 % Monocytes % 8.9 % Eosinophils % 3.0 % Basophils % 0.7 % Neutrophils # 5.4 (1.6-8.9) K/mcL Lymphocytes # 2.0 (0.6-4.6) K/mcL Monocytes # 0.8 (0.0-1.3) K/mcL Eosinophils # 0.3 (0.0-0.6) K/mcL Basophils # 0.1 (0.0-0.2) K/mcL Sodium 140 (136-145) mEq/L Potassium 3.4 L (3.5-5.1) mEq/L Chloride 110 H (98-107) mEq/L Carbon Dioxide 22 L (23-29) mEq/L BUN 10 (6-20) mg/dL Creatinine 0.75 (0.60-1.20) mg/dL Est GFR ( Amer) > 60 (> 60) Est GFR (Non-Af Amer) > 60 (> 60) BUN/Creatinine Ratio 13 (6-26) Glucose 112 H (70-105) mg/dL Calculated Osmolality 290 (280-300) Calcium 9.2 (8.6-10.3) mg/dL Total Bilirubin 0.3 (0.3-1.0) mg/dL AST 19 (13-39) Units/L ALT 17 (7-52) Units/L Alkaline Phosphatase 82 (34-104) Units/L Troponin I < 0.03 (< 0.04) ng/mL Serum Total Protein 7.2 (6.4-8.9) g/dL Albumin 3.9 (3.5-5.7) g/dL Globulin 3.3 (2.4-3.5) g/dL Albumin/Globulin Ratio 1.2 (1.1-2.2) - Radiology Data Radiology results reviewed: Yes I reviewed the patient's radiology results. Chest X-Ray 09/14/18 15:37 IMPRESSION: No acute cardiopulmonary disease. D/ / Mike Rincon MD / Mike Rincon MD Interpreting Provider: Mike Rincon MD - EKG Data EKG attestation: Yes I reviewed and interpreted this EKG. EKG results narrative: Patient's EKG shows sinus rhythm with a heart of 79 bpm, AR interval of 148 ms, QRS duration 100 ms, QT/QTc intervals of 393/451 ms respectively. There are no significant ST segment elevations, depressions, pathologic Q waves, abnormal T- wave inversions, nor any other signs of acute ischemic change. This EKG was performed today is generally consistent with morphology with prior EKG that was performed on 08/29/2018. Heart Score - Score History: Moderately Suspicious EKG: Normal Age: 45-65 Risk Factors: Equal/Greater than 3 risk factor or history of atherosclerotic disease Troponin: Less than normal limit HEART Score Total: 4
[2018-09-14 16:06] LABS: Basophils # 0.1 K/mcL (0.0-0.2); Basophils % 0.7 %; Eosinophils # 0.3 K/mcL (0.0-0.6); Hematocrit 34.5 % (35.3-44.9); Hemoglobin 10.7 g/dL (11.5-15.4); Immature Granulocytes % 0.4 % (0-4); Lymphocytes % 23.2 %; Mean Corpuscular Hemoglobin 24.7 pg (28.0-33.3); Mean Corpuscular Volume 79.5 fL (83.0-100.0); Mean Platelet Volume 8.9 fL (9.4-12.4); Monocytes # 0.8 K/mcL (0.0-1.3); Monocytes % 8.9 %; Neutrophils # 5.4 K/mcL (1.6-8.9); Platelet Count 312 K/mcL (140-400); Red Blood Count 4.34 M/mcL (3.82-4.97); Red Cell Distribution Width 18.2 % (11.5-14.5); Segmented Neutrophils % 63.8 %; White Blood Count 8.4 K/mcL (4.3-11.1)
[2018-09-14] MEDS: Nitroglycerin 0.4 MG TAB.SUBL SL SCH ×3 (16:24→16:34)
[2018-09-14 16:27] LABS: Alanine Aminotransferase 17 Units/L (7-52); Albumin 3.9 g/dL (3.5-5.7); Albumin/Globulin Ratio 1.2 (1.1-2.2); Alkaline Phosphatase 82 Units/L (34-104); Aspartate Amino Transferase 19 Units/L (13-39); BUN/Creatinine Ratio 13 (6-26); Bilirubin,Total 0.3 mg/dL (0.3-1.0); Blood Urea Nitrogen 10 mg/dL (6-20); Calcium 9.2 mg/dL (8.6-10.3); Carbon Dioxide 22 mEq/L (23-29); Chloride 110 mEq/L (98-107); Globulin 3.3 g/dL (2.4-3.5); Glucose 112 mg/dL (70-105); Osmolality,Calculated 290 (280-300); Potassium 3.4 mEq/L (3.5-5.1); Sodium 140 mEq/L (136-145); Total Protein 7.2 g/dL (6.4-8.9); Troponin I < 0.03 ng/mL (< 0.04); eGFR For African Americans > 60 (> 60); eGFR For Non-African Americans > 60 (> 60)
[2018-09-14] MEDS ORDERED: Acetaminophen 325 MG TABLET PO PRN (17:46)
[2018-09-14] MEDS ORDERED: Naloxone 0.4 MG/ML INJ IVP PRN (17:49)
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
[2018-09-14] MEDS ORDERED: *HR* OxyCODONE Immed Rel 5 MG TABLET PO ONE (20:51)
[2018-09-14] MEDS: *HR* Heparin 5,000 UNIT/ML VIAL SQ SCH (21:15)
[2018-09-15 01:16] LABS: Basophils # 0.1 K/mcL (0.0-0.2); Basophils % 1.2 %; Eosinophils # 0.4 K/mcL (0.0-0.6); Eosinophils % 5.1 %; Hemoglobin 9.9 g/dL (11.5-15.4); Immature Granulocytes % 0.1 % (0-4); Lymphocytes % 28.5 %; Mean Corpuscular HGB Conc 30.9 g/dL (31.6-35.5); Mean Corpuscular Hemoglobin 24.5 pg (28.0-33.3); Mean Corpuscular Volume 79.2 fL (83.0-100.0); Mean Platelet Volume 9.4 fL (9.4-12.4); Monocytes # 0.8 K/mcL (0.0-1.3); Neutrophils # 3.7 K/mcL (1.6-8.9); Platelet Count 289 K/mcL (140-400); Red Blood Count 4.04 M/mcL (3.82-4.97); Red Cell Distribution Width 18.3 % (11.5-14.5); Segmented Neutrophils % 54.1 %; White Blood Count 6.9 K/mcL (4.3-11.1)
[2018-09-15 01:38] LABS: BUN/Creatinine Ratio 18 (6-26); Blood Urea Nitrogen 14 mg/dL (6-20); Carbon Dioxide 21 mEq/L (23-29); Chloride 108 mEq/L (98-107); Chol/HDL Ratio 5.9 (0-4.9); Cholesterol 164 mg/dL (< 200); Glucose 112 mg/dL (70-105); HDL Cholesterol 28 mg/dL (40-59); LDL Cholesterol,Calculated 98 mg/dL (0-99); Osmolality,Calculated 289 (280-300); Phosphorous 3.4 mg/dL (2.7-4.5); Potassium 3.9 mEq/L (3.5-5.1); Sodium 139 mEq/L (136-145); Triglycerides 188 mg/dL (< 150); eGFR For African Americans > 60 (> 60); eGFR For Non-African Americans > 60 (> 60)
[2018-09-15 02:03] LABS: Folate 9.6 ng/mL (3.0-16.0)
[2018-09-15] MEDS: *HR* Heparin 5,000 UNIT/ML VIAL SQ SCH (05:25)
[2018-09-15 07:45] LABS: % Iron Saturation 9 % (15-50); Iron 30 mcg/dL (50-170); Transferrin 249 mg/dL (203-362)
[2018-09-15 08:01] LABS: Ferritin 8 ng/mL (10-120)
[2018-09-15] MEDS ORDERED: Metoprolol XL (24 HR) Succ 25 MG TAB.ER.24H PO SCH (09:00)
[2018-09-15] MEDS ORDERED: Aspirin 81 MG TAB.CHEW PO SCH (09:00)
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
[2018-09-15 11:05] VITALS: BP 125/82
[2018-09-15] MEDS ORDERED: *HR* OxyCODONE Immed Rel 5 MG TABLET PO PRN (11:24)
--- NOTE | 2018-09-15 11:46 | Discharge Summary ---
- NOTES TO OUTPATIENT PROVIDER Notes to Outpatient Provider: f/u with PCP in one week. f/u with Cardiology as scheduled. Please start taking all medications as prescribed. Please quit smoking. Orders not resulted at time of discharge: Pending orders 09/14/18 15:36 ECG 12 lead ECG [ECG] Stat Date of Encounter: 09/15/18 Time of Encounter: 11:38 - Discharge Diagnosis (1) Chest pain Priority: Primary Status: Acute Qualifiers: Chest pain type: unspecified Qualified Code(s): R07.9 - Chest pain, unspecified (2) CAD (coronary artery disease), [place] coronary artery Priority: Secondary Status: Chronic Qualifiers: [place] vs. transplanted heart: [place] heart Associated angina: with stable angina Qualified Code(s): I25.118 - Atherosclerotic heart disease of [place] coronary artery with other forms of angina pectoris (3) GERD (gastroesophageal reflux disease) Priority: Secondary Status: Chronic Qualifiers: Esophagitis presence: esophagitis presence not specified Qualified Code(s): K21.9 - Gastro-esophageal reflux disease without esophagitis (4) Fibromyalgia Priority: Secondary Status: Chronic (5) Nicotine dependence Priority: Secondary Status: Acute Qualifiers: Nicotine product type: cigarettes Substance use status: uncomplicated Qualified Code(s): F17.210 - Nicotine dependence, cigarettes, uncomplicated (6) Hypokalemia Priority: Secondary Status: Acute (7) Normocytic anemia Priority: Secondary Status: Acute (8) DVT prophylaxis Priority: Secondary Status: Acute Hospital course: Ms. Castellon is a 47 year old female with a history of Chronic tobacco dep endence and recent myocardial infarction status post left heart catheter and PCI with stent placement to [facility] on August 29 2018 now she presented to the ED with complaints of chest discomfort that began around 10 AM when she woke up and has persisted until administered nitroglycerin in the ED. She stated that she became dyspneic and felt palpitations hence she presented to the ED. She did mention that she has not been taking all her heart medications except ASA and Plavix. She still somkes 1 PPD. Patient was admitted in the hospital and placed on ride attendant. Her serial troponin came back as negative. EKG did not show any acute ischemic changes. Patient was evaluated by orchid superintendent who offered limited echo or stress test, however pt wanted to have them done as an out pt. Pt did mention since she does not have insurance, she was not able to afford all her medications. I counseled the pt to quit smoking and requested to SW to arrange for her medications. Will d/c her home in stable condition today and recommend to f/u with Card as an out pt. - Time Spent with Patient Total time spent providing and/or coordinating discharge services: - Discharge Medications Prescriptions: New Atorvastatin [Lipitor] 40 mg PO HS #30 tablet Metoprolol XL (24 HR) Succ [Toprol Xl] 25 mg PO DAILY #30 tab.er.24h Lisinopril [Zestril] 2.5 mg PO DAILY #15 tablet Continued Aspirin 81 mg PO DAILY #30 tab.chew Clopidogrel [Plavix] 75 mg PO DAILY #30 tablet Home Medications: Aspirin 81 mg PO DAILY #30 tab.chew 08/31/18 [Rx] Clopidogrel [Plavix] 75 mg PO DAILY #30 tablet 08/31/18 [Rx] Atorvastatin [Lipitor] 40 mg PO HS #30 tablet 09/15/18 [Rx] Lisinopril [Zestril] 2.5 mg PO DAILY #15 tablet 09/15/18 [Rx] Metoprolol XL (24 HR) Succ [Toprol Xl] 25 mg PO DAILY #30 tab.er.24h 09/15/18 [Rx] Allergies/Adverse Reactions: Allergy/AdvReac Type Severity Reaction Status Date / Time methylprednisolone AdvReac Diarrhea Verified 07/16/18 17:17 [From Medrol] Date of admission: 09/14/18 17:03 Primary care physician: PCP NONE Consults: 09/14/18 17:52 Consult to Physician [CONS] Routine Consulting Provider: Annel Molina Reason for Consult: established patient with recent LHC with PCI. ACS rule out Call Completed: No 09/14/18 18:21 Consult to Cadastral Engineer [CONS] Routine Reason for SW Consult: help with medications 09/15/18 09:19 Consult to Cardiology [CONS] Routine Comment: Consulting Provider: Annel Molina Reason for Consult: chest pain.. recent STEMI Time Notified: 09:20 Call Completed: No - Constitutional Vitals: Temp Pulse Resp BP Pulse Ox 97.9 F 77 16 125/82 99 09/15/18 11:02 09/15/18 11:02 09/15/18 11:02 09/15/18 11:02 09/15/18 11:02 General appearance: Present: cooperative, A&O X 3, no acute distress, answers questions appropriately Exam: Gen: Alert, awake, Oriented to time,place and person Chest: Diminished breath sounds B/L, No wheezing, No crackles, No rales Heart: S1S2+ RRR No murmurs Abd: Soft, NT, BS +, No organomegaly Ext: No edema, pulses are palpable, No calf tenderness Neuro : No acute focal neuro deficits noticed Skin: No rash. - Patient Status Disposition: Home, Self-Care Condition: Good Overall status at discharge: patient is back to baseline - Discharge Instructions Follow Up With: Willa Arroyo [Advanced Practice Nurse] - 09/22/18 2:15 pm (Please bring photo I.D, insurance cards and any medications you are currently taking. ) Forms: ED Satisfaction Letter - Diet and Activity Activity: increase activity as tolerated Diet: low salt diet
--- NOTE | 2018-09-16 13:33 | Electrocardiograph Report ---
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
--- NOTE | 2018-09-16 14:01 | Electrocardiograph Report ---
[place] [employer] Test Date: 2018-09-14 Pat Name: Joyce Castellon Department: [id number] Room: 3B36 Gender: F Photographic Engineer: : 1970 Requested By: Rangel Loredo Order Number: [id number] Reading MD: Shankar Miller Measurements Intervals [place] Rate: 79 P: 50 MI: 148 QRS: 58 QRSD: 100 T: 37 QT: 393 QTc: 451 Interpretive Statements Sinus rhythm ST elev, probable normal early repol pattern Electronically Signed On 09-16-2018 14:00:05 EDT by Shankar Miller
== END 2018-09-15 13:30 | disposition home or self-care (01) ==
LOC: 3BNU 15:33 → EMEROOARM 15:33 → SUATTDRO 17:03 → 3BNU 17:24
PROVIDERS: ADMIT Pharmacist; ATTEND Family Medicine

== ENCOUNTER 2018-10-07 18:35 | Observation (INO) ==
[2018-10-07] MEDS ORDERED: Aspirin 81 MG TAB.CHEW PO ONE (18:41)
[2018-10-07 19:06] LABS: Basophils # 0.1 K/mcL (0.0-0.2); Basophils % 0.9 %; Eosinophils # 0.3 K/mcL (0.0-0.6); Eosinophils % 2.9 %; Hematocrit 35.6 % (35.3-44.9); Hemoglobin 10.9 g/dL (11.5-15.4); Immature Granulocytes % 0.2 % (0-4); Lymphocytes # 2.1 K/mcL (0.6-4.6); Lymphocytes % 24.1 %; Mean Corpuscular HGB Conc 30.6 g/dL (31.6-35.5); Mean Corpuscular Hemoglobin 25.1 pg (28.0-33.3); Mean Platelet Volume 9.2 fL (9.4-12.4); Monocytes # 0.9 K/mcL (0.0-1.3); Monocytes % 9.8 %; Neutrophils # 5.4 K/mcL (1.6-8.9); Platelet Count 302 K/mcL (140-400); Red Blood Count 4.34 M/mcL (3.82-4.97); Segmented Neutrophils % 62.1 %; White Blood Count 8.7 K/mcL (4.3-11.1)
[2018-10-07 19:16] LABS: Prothrombin Time 10.9 Seconds (9.4-12.1)
[2018-10-07 19:19] LABS: Activated Partial Thrombo Time 33.3 Seconds (26.0-36.0)
[2018-10-07 19:21] LABS: BUN/Creatinine Ratio 14 (6-26); Blood Urea Nitrogen 9 mg/dL (6-20); Calcium 9.4 mg/dL (8.6-10.3); Carbon Dioxide 24 mEq/L (23-29); Chloride 108 mEq/L (98-107); Glucose 96 mg/dL (70-105); Osmolality,Calculated 285 (280-300); Potassium 3.9 mEq/L (3.5-5.1); Sodium 138 mEq/L (136-145); eGFR For African Americans > 60 (> 60); eGFR For Non-African Americans > 60 (> 60)
[2018-10-07 19:22] LABS: Troponin I < 0.03 ng/mL (< 0.04)
[2018-10-07] MEDS ORDERED: Ondansetron 4 MG/2 ML VIAL IVP PRN (21:15)
[2018-10-07] MEDS ORDERED: Naloxone 0.4 MG/ML INJ IVP PRN (21:15)
[2018-10-07] MEDS ORDERED: Nitroglycerin 0.4 MG TAB.SUBL SL PRN (21:18)
[2018-10-07] MEDS: *HR* Heparin 5,000 UNIT/ML VIAL SQ SCH (22:45)
[2018-10-08] MEDS: *HR* Heparin 5,000 UNIT/ML VIAL SQ SCH ×3 (05:44→21:54)
[2018-10-08] MEDS: Metoprolol XL (24 HR) Succ 25 MG TAB.ER.24H PO SCH (09:38)
[2018-10-08] MEDS: Aspirin 81 MG TAB.CHEW PO SCH (09:40)
[2018-10-08] MEDS: Isosorbide MONOnitrate (24 HR) 30 MG TAB.ER.24H PO SCH (11:31)
[2018-10-08] MEDS ORDERED: GI Cocktail 40 ML EACH PO ONE (16:32)
[2018-10-09] MEDS: *HR* Heparin 5,000 UNIT/ML VIAL SQ SCH (06:14)
[2018-10-09 07:12] VITALS: BP 97/60
[2018-10-09] MEDS: Aspirin 81 MG TAB.CHEW PO SCH (08:52)
[2018-10-09] MEDS: Isosorbide MONOnitrate (24 HR) 30 MG TAB.ER.24H PO SCH (08:52)
[2018-10-09] MEDS: Metoprolol XL (24 HR) Succ 25 MG TAB.ER.24H PO SCH (08:52)
== END 2018-10-09 10:26 | disposition home or self-care (01) ==
LOC: EMEROOARM 18:35 → 3BNU 18:35 → SUATTDRO 20:10 → 3BNU 20:40
PROVIDERS: ADMIT Internal Medicine Nephrology; ATTEND Family Medicine